=== PATIENT | female | born 1950 | race Hispanic/Latino ===

== ENCOUNTER 2017-01-15 10:54 | Outpatient (CLI) | payer MEDICARE, OTHER ==
--- NOTE | 2017-01-15 11:10 | RAD ---
PA AND LATERAL CHEST: History: Dyspnea. FINDINGS: Comparison made with exam of 09-14-16. The heart size is normal. The lungs are expanded without focal areas of consolidation, pneumothorax or pleural effusions. IMPRESSION: No radiographic evidence of acute cardiopulmonary process. POS: [facility]
== END 2017-01-15 10:55 | disposition home or self-care (01) ==
LOC: RAD 10:54
PROVIDERS: ATTEND Internal Medicine Pulmonary Disease
DX: R06.00 Dyspnea, unspecified (principal)
CPT/HCPCS: 71020

== ENCOUNTER 2017-04-16 07:35 | Outpatient (CLI) | payer MEDICARE, OTHER ==
--- NOTE | 2017-04-16 09:38 | ULT ---
ULTRASOUND ABDOMEN LIMITED: (RIGHT UPPER QUADRANT) DATE: 04-16-17 HISTORY: 66-year-old female with elevated LFTs. FINDINGS: Gallbladder: Surgically absent. Common duct: Dilated to 8 mm, probably due to reservoir effect secondary to cholecystectomy. Liver: Diffusely increased, heterogeneous echogenicity, consistent with fatty liver. Pancreas: Mostly obscured by shadowing from bowel gas. Right kidney: No hydronephrosis. IMPRESSION: 1. Hepatic steatosis. 2. Status post cholecystectomy. AL Hernandez POS: [facility]
== END 2017-04-16 07:36 | disposition home or self-care (01) ==
LOC: ULT 07:35
PROVIDERS: ATTEND Internal Medicine Geriatric Medicine
DX: R79.89 Other specified abnormal findings of blood chemistry (principal); R94.5 Abnormal results of liver function studies; K76.0 Fatty (change of) liver, not elsewhere classified; Z90.49 Acquired absence of other specified parts of digestive tract
CPT/HCPCS: 76705

== ENCOUNTER 2017-05-03 14:37 | Outpatient (CLI) | payer MEDICARE, OTHER | END 2017-05-03 14:38 | disposition home or self-care (01) | LOC: BICRAD 14:37 | PROVIDERS: ATTEND Internal Medicine Geriatric Medicine | DX: R05 Cough (principal); R11.10 Vomiting, unspecified; R06.00 Dyspnea, unspecified; I70.0 Atherosclerosis of aorta | CPT/HCPCS: 71046 ==

== ENCOUNTER 2017-06-17 07:52 | Outpatient (CLI) | payer MEDICARE, OTHER | END 2017-06-17 07:53 | disposition home or self-care (01) | LOC: BICMAMMO 07:52 | PROVIDERS: ATTEND Internal Medicine Geriatric Medicine | DX: Z12.31 Encounter for screening mammogram for malignant neoplasm of breast (principal); Z80.3 Family history of malignant neoplasm of breast | CPT/HCPCS: 77063; 77067 ==

== ENCOUNTER 2017-11-15 11:46 | Observation (INO) | payer MEDICARE, OTHER ==
[2017-11-15] MEDS ORDERED: hydrALAZINE 20 MG/ML VIAL ONE (12:10)
[2017-11-15 12:23] LABS: #Eosinphils 0.1 thou/uL (0.0-0.7); #Lymphocytes 2.4 thou/uL (1.20-3.40); #Monocytes 0.5 thou/uL (0.11-0.59); #Neutrophils 3.2 thou/uL (1.40-6.50); %Basophils 0.4 % (0.0-1.0); %Eosinophils 2.1 % (0.0-10.0); %Lymphocytes 38.1 % (21.0-51.0); %Monocytes 7.6 % (0.0-10.0); %Neutrophils 51.7 % (42.0-75.0); Hemoglobin 14.5 g/dL (12.0-16.0); Mean Corpuscular HGB CONC 34.7 g/dL (32.0-36.0); Mean Corpuscular Hemoglobin 29.8 pg (27.0-31.0); Mean Platelet Volume 8.6 fL (7.4-10.4); Platelet Count 174 thou/uL (130-400); RBC Distribution Width 13.7 % (11.5-14.5); Red Blood Cell (RBC) Count 4.86 mill/uL (4.20-5.40); White Blood Cell (WBC) Count 6.2 thou/uL (4.8-10.8)
[2017-11-15 12:48] LABS: ALT (SGPT) 61 U/L (8-55); AST (SGOT) 58 U/L (5-34); Albumin 3.9 g/dL (3.4-4.8); Alkaline Phosphatase 134 U/L (40-150); Anion Gap 14 mmol/L (10-20); BUN (Urea Nitrogen) 16 mg/dL (9.8-20.1); Bilirubin, Total 0.5 mg/dL (0.2-1.2); CK (CPK) 79 U/L (29-168); Calc. Creatinine Clearance 0 mL/min (70-130); Carbon Dioxide 22 mmol/L (23-31); Chloride 109 mmol/L (98-107); Estimated GFR-MDRD 74; Globulin 3.2 g/dL (2.4-3.5); Glucose 106 mg/dL (80-115); Potassium 3.7 mmol/L (3.5-5.1); Protein, Total 7.1 g/dL (6.0-8.3); Sodium 141 mmol/L (136-145)
[2017-11-15 12:52] LABS: CKMB 0.9 ng/mL (0-6.6); Troponin I Less than 0.010 ng/mL (< 0.028)
--- NOTE | 2017-11-15 13:00 | RAD ---
CHEST ONE VIEW: HISTORY: Chest pain. COMPARISON: Radiograph from 09/14/2016. FINDINGS: The left atrium is enlarged. Heart size is enlarged. Chronic interstitial markings in the lung base s. No pneumothorax or large effusion. No acute osseous abnormality. IMPRESSION: No acute intrathoracic abnormality. No significant change. POS: [facility]
[2017-11-15] MEDS ORDERED: ISOVUE-370 76%-LOCM 1 ML ONE (13:32)
--- NOTE | 2017-11-15 13:32 | CT ---
CT ANGIOGRAM CHEST WITH CONTRAST: HISTORY: Chest pain radiating to the back. History of aortic aneurysm. COMPARISON: CT angiogram from 2017. FINDINGS: CT angiogram of the chest and abdomen performed after the intravenous administration of contrast. Th ree-D rendering was provided. Infrarenal abdominal aortic aneurysm is present without focal dissection. The aneurysm measures up t o 2 cm, increased from 1.8 cm from 2017. The intimal flap opening now measures approximately 6 mm, p reviously 3 mm. Extensive atherosclerotic plaque. The craniocaudad length of the aneurysm and dissection combined measures approximately 2 cm. The pulmonary arteries are without proximal segmental pulmonary arterial filling defect. Mild cardio megaly. No pericardial effusion. There is a mass in the right lower lobe with swirling of the vessels and parenchyma around it, which has not significantly changed, likely a focal area of round atelectasis. No pneumothorax. No signif icant effusion. There is no acute osseous abnormality. Prior cholecystectomy. [place] effect of the common bile d uct. IMPRESSION: 1. Mild size increase of the infrarenal abdominal aorta dissection. 2. Round atelectasis left lower lobe. POS: [facility]
[2017-11-15] MEDS ORDERED: Nitroglycerin 2% Ointment 1 INCH/1 GM Packet ONE (14:00)
[2017-11-15] MEDS ORDERED: Pepto Bismol Chew TAB PO PRN (14:23)
[2017-11-15] MEDS ORDERED: Acetaminophen 325 MG TAB PO PRN (14:23)
[2017-11-15] MEDS ORDERED: Bisacodyl 5 MG TAB PO PRN (14:23)
[2017-11-15] MEDS ORDERED: Ondansetron ODT 4 MG TAB PO PRN (14:23)
[2017-11-15] MEDS ORDERED: Senokot 8.6 MG TAB PO PRN (14:23)
[2017-11-15 16:22] VITALS: BMI 36.7
[2017-11-15 16:24] LABS: Troponin I Less than 0.010 ng/mL (< 0.028)
[2017-11-15 17:55] LABS: Troponin I 0.015 ng/mL (< 0.028)
[2017-11-15] MEDS: hydrALAZINE 20 MG/ML VIAL IM PRN (19:35)
--- NOTE | 2017-11-15 19:35 | HP ---
CHIEF COMPLAINT: Chest pain. HISTORIAN: The patient's daughter, seamus. HISTORY OF PRESENT ILLNESS: This is a 67-year-old female with past medical history of AAA without ru pture, CABG in 2005, coronary artery disease, right coronary stent presented with chest pain, which s tarted about 3 days ago. Per the patient, the pain started on Saturday prior to the day of admission. When the pain presented, she stated that the pain was around the epigastric region and radiated to her mid back. Pain was very intense; pressure-like; on a pain scale, it was about 8 or 9/10 in sever ity; and the pain lasted throughout the night. Eventually, pain resolved spontaneously around 3:00 a .m. The patient stated that she tried to drink some water to help with the pain, but nothing seemed to help or alleviate her pain. Couple of days later, the patient experienced the same epigastric ilda n and it resolved spontaneously. The patient states that exertion does not bring on this epigastric pain, neither does she know what brings it on, but states that sometimes the pain comes on spontaneou sly without any provocation factors. Per patient, the last episode was very intense, therefore, the patient went to the primary care physician's office and the patient was told to come to the emergency room. In the emergency room, the patient states that her pain is located at the epigastric region a nd radiates to the back. The pain is reproducible. The patient stated that she has never had such a pain similar to this before. Of note, the patient states that she sees his human factors specialist and his PCP regularly and is very compliant with her medications except for today that she did not take her bloo d pressure medication. The patient denies any headaches, shortness of breath, cough, palpitations, d izziness, lower quadrant abdominal pain, urinary incontinence, bowel incontinence, constipation, diar grzegorz, and lower extremity edema. REVIEW OF SYSTEMS: The patient admits to reproducible chest pain that radiates to her back, but alysha es all others for her review of system. Vitals in the ED, the patient's blood pressure was 223/79, pulse of 67, respiratory rate of 19, tempe rature of 97.5, O2 sat of 99 on room air. PAST MEDICAL HISTORY: Significant for coronary artery disease, hypertension, stroke in 2014, AAA, ri ght carotid artery stent placement, pulmonary embolism. PAST SURGICAL HISTORY: Cholecystectomy, right carotid stent placement, right-sided tumor in the abdo men, coronary artery bypass and graft, hysterectomy, breast surgery. FAMILY HISTORY: Father , diagnosed with heart disease and stroke. Mother , diagnose d with cancer. Sibling alive brother, brain tumor in frontal lobe and mass in right posterior craniu m; diagnosed with diabetes, heart disease. Paternal grandfather, , diagnosed with heart dise ase. Paternal grandmother , diagnosed with heart disease and stroke. Maternal grandfather d eceased, family history unknown. The patient states that her mother had ovarian cancer. Brothers wi th diabetes and heart diseases. She has 1 sister from heart attack. SOCIAL HISTORY: The patient denies any smoking history. The patient denies any illicit drug use. T he patient lives alone with her daughter. 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 The patient drinks caffeine. ALLERGIES: No known drug allergies. CURRENT MEDICATIONS: The patient takes aspirin 81 mg, isosorbide mononitrate ER 120 mg, vitamin D 50 ,000 units weekly, rosuvastatin 20 mg, levothyroxine 75 mcg, nifedipine 90 mg, losartan 50 mg, clopid ogrel 75 mg, Nitrostat 0.4 mg sublingual every 5 minutes as needed. PHYSICAL EXAMINATION: VITAL SIGNS: Blood pressure 223/79, pulse 67, respiratory rate of 19, temperature 95.5. GENERAL: The patient is lying in bed comfortably, able to speak in full sentences. Does not appear to be in any distress. HEENT: Normocephalic, atraumatic. Pupils are equally round and reactive to light. Extraocular move ments are intact. No scleral icterus. NECK: Supple. No JVDs. Mucous membranes are moist. RESPIRATORY: Clear to auscultation bilaterally. No wheezing, no rales, no rhonchi. CARDIOVASCULAR: Positive S1, S2. Regular rate and rhythm. No murmurs, no gallops, no rubs apprecia martha. ABDOMEN: Right epigastric abdominal tenderness. Positive bowel sounds. No abdominal distention. N o masses. No pulsatile masses. No peritoneal signs. No rigidity. No guarding. BACK: The patient has thoracic musculoskeletal reproducible back tenderness. EXTREMITIES: 5/5 upper extremity strength, 5/5 lower extremity strength. NEUROLOGIC: Within normal limits. Cranial nerves II-XII grossly intact. SKIN: Warm, dry, and intact. PSYCHIATRIC: Normal affect. LABORATORY AND X-RAY FINDINGS: EKG: Normal sinus rhythm with a rate of 64. Chest CT showed 3 mm infrarenal abdominal aneurysm with dissection that increased in size from 3 mm t o 6 mm. CBC: WBC 6.2, hemoglobin 14.5, hematocrit 41.8, platelet of 174. Electrolytes: Sodium 141 , potassium 3.7, chloride 109, carbon dioxide of 22, AST 58, ALT 61. Troponin is less than 0.010, CK -MB 0.9, creatinine kinase is 79. ASSESSMENT AND PLAN: 1. This is a 67-year-old female with significant past medical history of CABG in 2005, being admitte d for atypical chest pain, likely due to unstable angina versus reflux disease. We will start the pa andrew on Protonix. We will give the patient his home dose of isosorbide dinitrate. We will give the patient losartan, aspirin, Plavix. We have consulted Cardiology. We will further work the patient up by doing a nuclear stress test. If nuclear stress test is negative, the patient will likely be di scharged home. 2. History of gastroesophageal reflux disease. We will do Protonix. 3. Coronary artery disease. We will continue the patient on home medications. 4. Hypertension. Currently, the patient did not take her home medications, so blood pressure is marjorie vated. We will do hydralazine p.r.n. We will start the patient on her home blood pressure medicatio ns. 4. Abdominal aortic aneurysm, currently stable. Nothing to be done at this time. We will monitor t he patient. 5. History of left carotid artery stenosis, 60% stenosed. The patient states that she visits her ph ysician every 6 months to have it checked. Currently, there is nothing to be done per the patient. We will advise the patient to continue to follow up as outpatient. 6. Deep venous thrombosis prophylaxis. We will do SCDs, Lovenox.
[2017-11-15] MEDS ORDERED: Valsartan 80 MG TAB PO SCH (21:00)
[2017-11-15] MEDS: Fluticasone Propionate Nasal Spray 16 gm Bottle NASAL PRN (21:14)
[2017-11-16] MEDS: Levothyroxine Sodium 75 MCG TAB PO SCH (05:54)
[2017-11-16] MEDS: hydrALAZINE 20 MG/ML VIAL IM PRN (06:32)
[2017-11-16] MEDS ORDERED: hydrALAZINE 20 MG/ML VIAL SLOW IVP PRN (07:30)
[2017-11-16] MEDS: Clopidogrel Bisulfate 75 MG TAB PO SCH (08:00)
[2017-11-16] MEDS: NIFEdipine XL 90 MG TAB PO SCH (08:01)
[2017-11-16] MEDS: Enoxaparin Sodium 40 MG/0.4 ML SYRINGE SC SCH (08:01)
[2017-11-16] MEDS: Losartan 25 MG TAB PO SCH (08:01)
[2017-11-16] MEDS: Rosuvastatin 20 MG TAB PO SCH (08:01)
[2017-11-16] MEDS: Fluticasone Propionate Nasal Spray 16 gm Bottle NASAL PRN (08:02)
--- NOTE | 2017-11-16 16:17 | CON ---
DATE OF CONSULTATION: 11/16/2017 HISTORY: Soila Beth is a 67-year-old Latin-[place] female with previous history of CABG, followed by Dr. Hansen for many years. In 2005, she underwent CABG x5. In 06/2008, while living in [place], she underwent repeat catheterization due to the finding of anterior ischemia on nuclear stress test. There was normal wall motion with ejection fraction of 60%-65% with moderate mitral regurgitation. There was 70% distal left main, total occlusion of the LAD proximally. The circumflex had a 40% ostial stenosis with severe proximal disease in both the obtuse marginals. The right coronary artery was a small vessel with diffuse disease in its midsection. Bypass revealed patent graft to the right coronary artery, obtuse marginal 1, obtuse marginal 2. There is a patent graft to the second diagonal. The SUAREZ to the LAD was small and anastomosed to the mid LAD after the second diagonal. There was strong competitive flow from the vein graft to the second diagonal. She also underwent bilateral renal angiography, which revealed only minimal plaquing. In May 2017, she underwent a cardiac PET scan in the office. This revealed no evidence of ischemia. There was normal wall motion with ejection fraction of 65%. She was last seen in the office on 09/26/2017, and in general, had no specific complaints. She now is admitted with a several-day history of epigastric discomfort. She describes this as a pressure, associated with some shortness of breath. The first night, this discomfort lasted 5 or 6 hours and kept her up until 3 in the morning. She ultimately took some Gas-X and in 5-10 minutes this seemed to relieve the discomfort. Since then, she has had several recurrences, relieved with Gas-X. Her last episode was more severe and she went to see her primary physician and then was referred to the emergency room. She denies any chest discomfort. PAST MEDICAL HISTORY: Coronary artery disease, hypertension, hypercholesterolemia, right carotid artery stent placement, history of pulmonary embolism. Her most recent abdominal CAT scan revealed no evidence of abdominal aortic aneurysm. This was performed in 08/2016. Three months prior to that, an abdominal CT revealed atherosclerotic changes in the abdominal aorta , but no evidence of aneurysm. Hypothyroidism. MEDICATIONS: Aspirin 81 daily, Plavix 75 mg daily, vitamin D2, isosorbide mononitrate 120 q.a.m., levothyroxine 75 mcg, losartan 50 daily, nifedipine 90 mg daily, rosuvastatin 20 at bedtime. ALLERGIES: None. SOCIAL HISTORY: She does not smoke. She does not drink. OPERATIONS: CABG, cholecystectomy, right carotid artery stent, hysterectomy, breast surgery. FAMILY HISTORY: Father had heart disease. REVIEW OF SYSTEMS: Twelve-point review of systems, otherwise, unremarkable. PHYSICAL EXAMINATION: VITAL SIGNS: Blood pressure 161/70, pulse of 85. HEENT: PERRL. NECK: Supple. CHEST: Clear. CARDIAC EXAMINATION: S1 and S2 normal, without any S3, S4, or murmurs. Carotid upstrokes normal, without bruits. ABDOMEN: Obese. Normal bowel sounds. She does not have any epigastric tenderness. EXTREMITIES: Revealed no clubbing, cyanosis, or edema. NEUROLOGIC: Grossly intact. SKIN: Warm and dry. LABORATORY DATA: EKG reveals normal sinus rhythm with poor R-wave progression in V1 to V3. CBC is normal. Sodium 141, potassium 3.7, chloride 109, carbon dioxide 22, BUN 16, creatinine 0.78. Cardiac enzymes are negative x3. In 2017, she had a lipid panel with an LDL of 52. IMPRESSION: 1. Epigastric pain, probably gastrointestinal in nature. She had 5-6 hours of pain initially and her cardiac enzymes were totally normal. 2. Status post coronary artery bypass grafting x5. In 2008, she underwent repeat catheterization and her grafts were patent at that time. She also had a PET scan in the office in 05/2017, which revealed no evidence of ischemia. 3. Hypertension. 4. Hyperlipidemia. 5. History of right carotid stent. 6. Obesity. PLAN: Ms. Beth's epigastric discomfort does not appear to be cardiac in nature with prolonged episode and negative cardiac enzymes. Also, the discomfort seemed to improve with Gas-X. She has been placed on Protonix 40 mg daily. She will undergo adenosine Cardiolite testing for further evaluation as per the primary service. [facility]
--- NOTE | 2017-11-16 16:38 | PDOC.PN ---
- Subjective Encounter Start Date: 11/16/17 Encounter Start Time: 16:36 seen and examined. States she is having chest compression type pain this morning. BP was elevated in the AM - Objective MAR Reviewed: Yes Vital Signs & Weight: Vital Signs (12 hours) Temp Pulse Resp BP BP BP Pulse Ox 11/16/17 15:05 98.4 F 89 18 139/63 97 11/16/17 12:27 99.3 F 77 18 129/60 97 11/16/17 09:22 85 161/70 H 11/16/17 08:01 79 170/74 H 11/16/17 08:00 97.5 F L 79 16 11/16/17 07:55 98.5 F 80 18 170/74 H 97 11/16/17 06:32 79 203/84 H 11/16/17 05:54 97.9 F 82 16 203/84 H 98 Weight Weight 182 lb 12.8 oz I&O: 11/15/17 11/16/17 11/17/17 06:59 06:59 06:59 Intake Total 540 Output Total 400 Balance 140 Result Diagrams: 11/15/17 12:11 11/15/17 12:11 Phys Exam - Physical Examination Constitutional: NAD HEENT: PERRLA, moist MMs Neck: no JVD, supple, full ROM Respiratory: no wheezing, no rales, no rhonchi Cardiovascular: RRR, no significant murmur pain with palpation Gastrointestinal: soft, non-tender, no distention, positive bowel sounds Musculoskeletal: no edema, pulses present Neurological: non-focal, normal sensation, moves all 4 limbs Psychiatric: normal affect, A&O x 3 Skin: no rash, normal turgor Dx/Plan (1) atypical chest likely unstable angina Status: Acute Comment: stress test and echo ordered. Cardio saw the patient. Cardiac managment in progress. (2) Hypertensive urgency Code(s): I16.0 - HYPERTENSIVE URGENCY Status: Acute Comment: hydralazing prn and patient home meds. (3) AAA (abdominal aortic aneurysm) Code(s): I71.4 - ABDOMINAL AORTIC ANEURYSM, WITHOUT RUPTURE Status: Chronic Comment: stable (4) CAD (coronary artery disease) Code(s): I25.10 - ATHSCL HEART DISEASE OF [place] CORONARY ARTERY W/O ANG PCTRS Status: Chronic Comment: continue current meds. (5) Dyslipidemia Code(s): E78.5 - HYPERLIPIDEMIA, UNSPECIFIED Status: Chronic (6) GERD (gastroesophageal reflux disease) Code(s): K21.9 - GASTRO-ESOPHAGEAL REFLUX DISEASE WITHOUT ESOPHAGITIS Status: Chronic Comment: continue current management. (7) Obesity (BMI 30-39.9) Code(s): E66.9 - OBESITY, UNSPECIFIED Status: Chronic - Plan * . Review of Systems - Review of Systems Constitutional: negative: fever, chills, sweats, weakness, malaise, other Eyes: negative: Pain, Vision Change, Conjunctivae Inflammation, Eyelid Inflammation, Redness, Other ENT: negative: Ear Pain, Ear Discharge, Nose Pain, Nose Discharge, Nose Congestion, Mouth Pain, Mouth Swelling, Throat Pain, Throat Swelling, Other Respiratory: negative: Cough, Dry, Shortness of Breath, Hemoptysis, SOB with Excertion, Pleuritic Pain, Sputum, Wheezing Cardiovascular: chest pain. negative: palpitations, orthopnea, paroxysmal nocturnal dyspnea, edema, light headedness, other Gastrointestinal: negative: Nausea, Vomiting, Abdominal Pain, Diarrhea, Constipation, Melena, Hematochezia, Other Genitourinary: negative: Dysuria, Frequency, Incontinence, Hematuria, Retention , Other Musculoskeletal: negative: Neck Pain, Shoulder Pain, Arm Pain, Back Pain, Hand Pain, Leg Pain, Foot Pain, Other Skin: negative: Rash, Lesions, Hola, Bruising, Other Neurological: negative: Weakness, Numbness, Incoordination, Change in Speech, Confusion, Seizures, Other - Medications/Allergies Allergies/Adverse Reactions: Allergies Allergy/AdvReac Type Severity Reaction Status Date / Time No Known Allergies Allergy Verified 11/15/17 15:38 Medications: Current Medications Acetaminophen (Tylenol) 650 mg PO Q4H PRN PRN Reason: Headache/Fever or Pain Aspirin (Aspirin Chewable) 81 mg PO DAILY [facility] Last Admin: 11/16/17 08:00 Dose: 81 mg Bisacodyl (Dulcolax) 10 mg PO DAILYPRN PRN PRN Reason: Constipation Bismuth Subsalicylate (Pepto Bismol) 2 tab PO Q1H PRN PRN Reason: Diarrhea/Loose Stools Clopidogrel Bisulfate (Plavix) 75 mg PO DAILY [facility] Last Admin: 11/16/17 08:00 Dose: 75 mg Enoxaparin Sodium (Lovenox) 40 mg SC 0900 [facility] Last Admin: 11/16/17 08:01 Dose: 40 mg Fluticasone Propionate (Flonase Nasal [place]) 0 gm NASAL DAILYPRN PRN PRN Reason: Allergies Last Admin: 11/16/17 08:02 Dose: 1 spr Hydralazine HCl (Apresoline) 10 mg SLOW IVP Q4H PRN PRN Reason: Blood Pressure Isosorbide Mononitrate (Imdur) 60 mg PO BID [facility] Last Admin: 11/16/17 08:01 Dose: 60 mg Levothyroxine Sodium (Synthroid) 75 mcg PO 0600 [facility] Last Admin: 11/16/17 05:54 Dose: 75 mcg Losartan Potassium (Cozaar) 50 mg PO DAILY [facility] Last Admin: 11/16/17 08:01 Dose: 50 mg Morphine Sulfate (Morphine) 2 mg SLOW IVP Q4H PRN PRN Reason: Moderate to Severe Pain (6-10) Nifedipine (Procardia Xl) 90 mg PO DAILY [facility] Last Admin: 11/16/17 08:01 Dose: 90 mg Ondansetron HCl (Zofran Odt) 4 mg PO Q6H PRN PRN Reason: Nausea/Vomiting Pantoprazole Sodium (Protonix) 40 mg PO DAILY [facility] Last Admin: 11/16/17 08:01 Dose: 40 mg Rosuvastatin Calcium (Crestor) 20 mg PO DAILY [facility] Last Admin: 11/16/17 08:01 Dose: 20 mg Senna (Senokot) 2 tab PO HSPRN PRN PRN Reason: Constipation Sodium Chloride (Flush - Normal Saline) 10 ml IVF Q12HR [facility] Last Admin: 11/16/17 08:01 Dose: 10 ml Sodium Chloride (Flush - Normal Saline) 10 ml IVF PRN PRN PRN Reason: Saline Flush
[2017-11-17] MEDS: Levothyroxine Sodium 75 MCG TAB PO SCH (05:44)
[2017-11-17 08:06] VITALS: BP 155/69; TEMP 98
[2017-11-17] MEDS: Clopidogrel Bisulfate 75 MG TAB PO SCH ×2 (10:15→12:46)
[2017-11-17] MEDS: Enoxaparin Sodium 40 MG/0.4 ML SYRINGE SC SCH (10:15)
[2017-11-17] MEDS: NIFEdipine XL 90 MG TAB PO SCH ×2 (10:15→12:46)
[2017-11-17] MEDS: Losartan 25 MG TAB PO SCH ×2 (10:15→12:46)
[2017-11-17] MEDS: Rosuvastatin 20 MG TAB PO SCH ×2 (10:16→12:45)
[2017-11-17] MEDS ORDERED: ADENOSINE 60 MG/20 ML VIAL ONE (10:44)
--- NOTE | 2017-11-17 13:12 | NM ---
CARDIAC SPECT: HISTORY: A 67-year-old female with chest pain, hypertension, coronary artery disease, CABG, stent. TECHNIQUE: A myocardial perfusion scan was performed using the single-isotope 1-day protocol with Technetium 99m sestamibi. Ten mCi were injected intravenously for the rest exam followed by 30 mCi for the stress study. Pharmacologic stress with adenosine is monitored and interpreted by Dr. Humphries. FINDINGS: Homogeneous tracer distribution is seen in the myocardial segments on stress and rest images without fixed or reversible defects. GATED SPECT LVEF: 73%. WALL MOTION EXAM: Normal. IMPRESSION: Normal myocardial perfusion scan. POS: [facility]
--- NOTE | 2017-11-17 14:42 | DIS ---
DATE OF DISCHARGE: 11/17/2017 DISCHARGE DISPOSITION: Home. The patient will be discharged home once cleared by Cardiology. DISCHARGE MEDICATIONS: 1. Dexilant 60 mg daily. 2. All other home medications were left, unchanged including aspirin and Plavix. BRIEF HOSPITAL COURSE: Patient is a 67-year-old female with coronary artery disease who presented to the hospital with chest discomfort. Please refer to the history and physical for further details. The patient was admitted to the hospital with a diagnosis of chest discomfort, rule out acute coronar y syndrome. Serial troponins remain negative. The patient was evaluated by Cardiology, Dr. Humphries as well. She underwent a Cardiolite stress test that was negative for reversible ischemia. An echo cardiogram showed ejection fraction 55%-60% with mild mitral regurgitation and mild tricuspid regurgi tation. The left atrium was mildly dilated. A CT dissection protocol in the emergency room showed m ild increase in the infrarenal abdominal aortic aneurysm without focal dissection. Patient is chest pain free. Her symptoms have improved after addition of PPIs. FINAL DIAGNOSES: 1. Chest discomfort, acute coronary syndrome ruled out. 2. Negative Cardiolite stress test. 3. Obesity with a BMI 37.7. 4. Coronary artery disease, status post coronary artery bypass grafting. 5. Mild increase in size of the infrarenal abdominal aortic aneurysm. 6. History of carotid artery stenosis, primary care physician is advised to follow. 7. History of cerebrovascular accident. 8. History of pulmonary embolism. Plan of care was discussed with the patient in detail and she stated understanding.
--- NOTE | 2017-11-20 09:12 | STRESS ---
Acquisition Time: 2017-11-17 10:22:18 Total Exercise Time: 00:04:00 Test Indications: CHEST PAIN Medications: Protocol: ADENOSINE Max HR: 090 BPM 58% of Pred: 154 BPM Max BP: 160/080 mmHG Max Work Load: 1.0 METS RESTING EKG: SINUS BRADYARRTHYMIA AT 54 BPM AND NST SYMPTOMS: CHEST PAIN AND NAUSEA APPROPRIATE RESPONSE FOR ADENOSINE ECTOPY: RARE PVCS EKG STRESS: NO SIGNIFICANT CHANGES INTERPRETATION: AWAIT NUCLEAR IMAGES FOR DEFINITIVE DIAGNOSIS Confirmed by IMELDA GALEAS ([id number]), slot editor JORDAN DOMINGUEZ ([id number]) on 11/20/2017 9:11:50 AM Referred By: Confirmed By:IMELDA GALEAS
--- NOTE | 2017-11-20 14:52 | EKG ---
Test Reason : Blood Pressure : / mmHG Vent. Rate : 064 BPM Atrial Rate : 250 BPM P-R Int : 224 ms QRS Dur : 092 ms QT Int : 386 ms P-R-T Axes : 054 032 086 degrees QTc Int : 398 ms Normal sinus rhythm Septal infarct , age undetermined Abnormal ECG Confirmed by JUAN ANTONIO DENISE ([id number]), editor publications JINNY ATKINS ([id number]) on 11/20/2017 2:52:03 PM Referred By: Confirmed By:JUAN ANTONIO DENISE
== END 2017-11-17 14:57 | disposition home or self-care (01) ==
LOC: ERS 11:46 → 2SW 15:06
PROVIDERS: ADMIT Internal Medicine; ATTEND Internal Medicine
DX: R07.89 Other chest pain (principal); I25.10 Atherosclerotic heart disease of native coronary artery without angina pectoris; I71.4 Abdominal aortic aneurysm, without rupture; I65.22 Occlusion and stenosis of left carotid artery; I16.0 Hypertensive urgency; Z95.1 Presence of aortocoronary bypass graft; K21.9 Gastro-esophageal reflux disease without esophagitis; E78.00 Pure hypercholesterolemia, unspecified; E03.9 Hypothyroidism, unspecified; E78.5 Hyperlipidemia, unspecified; E66.9 Obesity, unspecified; Z68.37 Body mass index [BMI] 37.0-37.9, adult; Z86.73 Personal history of transient ischemic attack (TIA), and cerebral infarction without residual deficits; Z86.711 Personal history of pulmonary embolism; Z79.82 Long term (current) use of aspirin; Z79.02 Long term (current) use of antithrombotics/antiplatelets; Z79.899 Other long term (current) drug therapy; Z95.820 Peripheral vascular angioplasty status with implants and grafts; Z95.5 Presence of coronary angioplasty implant and graft
CPT/HCPCS: 71045; 71275; 78452; 80053; 82550; 82553; 84484 ×2; 85025; 93005; 93017; 93306; 96372; 96374; 96376 ×2; 99285; A9500; G0378 ×2; 36415; A4216; J0153; J0360; J1650

== ENCOUNTER 2019-10-07 12:01 | Emergency (ER) | payer MEDICARE, OTHER ==
--- NOTE | 2019-10-07 13:56 | CT ---
EXAM: CT scan cervical spineWithout contrast: HISTORY: Injury from trauma with neck pain COMPARISON: None FINDINGS: No evidence for acute fracture or facet dislocation. No significant malalignment. No prevertebral soft tissue swelling. Generalized spondylosis. Carotid arterial calcific disease with right-sided stent. IMPRESSION: No evidence for acute fracture or facet dislocation or other significant acute process.
[2019-10-07] MEDS ORDERED: Ketorolac Tromethamine 30 MG/ML VIAL ONE (14:34)
== END 2019-10-07 14:25 | disposition home or self-care (01) ==
LOC: ERS 12:01
DX: S16.1XXA Strain of muscle, fascia and tendon at neck level, initial encounter (principal); V43.62XA Car passenger injured in collision with other type car in traffic accident, initial encounter
CPT/HCPCS: 72125; J1885

== ENCOUNTER 2019-11-22 06:28 | Inpatient (IN) | payer MEDICARE, OTHER ==
[2019-11-22] MEDS ORDERED: Nitroglycerin 2% Ointment 1 INCH/1 GM Packet ONE (06:56)
[2019-11-22] MEDS ORDERED: niCARdipine 20MG In NaCl 20 MG/200 ML BAG ONE (06:56)
[2019-11-22] MEDS ORDERED: Aspirin 325 MG TAB ONE (06:56)
[2019-11-22 07:04] LABS: #Eosinphils 0.2 thou/uL (0.0-0.7); #Monocytes 0.6 thou/uL (0.11-0.59); #Neutrophils 4.5 thou/uL (1.40-6.50); %Basophils 0.6 % (0.0-1.0); %Eosinophils 2.8 % (0.0-10.0); %Lymphocytes 35.9 % (21.0-51.0); %Monocytes 7.1 % (0.0-10.0); %Neutrophils 53.7 % (42.0-75.0); Hemoglobin 14.6 g/dL (12.0-16.0); Mean Corpuscular HGB CONC 34.4 g/dL (32.0-36.0); Mean Corpuscular Hemoglobin 29.9 pg (27.0-31.0); Mean Corpuscular Volume 86.9 fL (78.0-98.0); Mean Platelet Volume 10.3 fL (7.4-10.4); Platelet Count 153 thou/uL (130-400); Red Blood Cell (RBC) Count 4.87 mill/uL (4.20-5.40); White Blood Cell (WBC) Count 8.4 thou/uL (4.8-10.8)
[2019-11-22 07:22] LABS: ALT (SGPT) 37 U/L (8-55); AST (SGOT) 35 U/L (5-34); Albumin 3.9 g/dL (3.4-4.8); Alkaline Phosphatase 99 U/L (40-110); Anion Gap 17 mmol/L (10-20); BUN (Urea Nitrogen) 15 mg/dL (9.8-20.1); Bilirubin, Total 0.7 mg/dL (0.2-1.2); Calc. Creatinine Clearance 0 mL/min (70-130); Carbon Dioxide 17 mmol/L (23-31); Chloride 111 mmol/L (98-107); Estimated GFR-MDRD 75; Globulin 3.4 g/dL (2.4-3.5); Glucose 123 mg/dL (80-115); Lipase 39 U/L (8-78); Potassium 3.1 mmol/L (3.5-5.1); Protein, Total 7.3 g/dL (6.0-8.3); Sodium 142 mmol/L (136-145)
--- NOTE | 2019-11-22 07:34 | RAD ---
Exam: Chest one view HISTORY:Chest pain Comparison: 10/17/2019 FINDINGS: Cardiac silhouette:Enlarged cardiac silhouette. There are sternotomy wires. Aorta: Atherosclerosis of the aorta Pulmonary vessels: Normal Costophrenic angles: Clear LUNGS: No masses or consolidation. Chronic changes are present. Pneumothorax: None Osseous abnormalities: None IMPRESSION: 1. Atherosclerosis 2. No acute cardiopulmonary process.
[2019-11-22] MEDS ORDERED: niCARdipine 25 MG in Sodium Chloride 0.9% 250 ML 240 ML IVPB SCH (10:00)
--- NOTE | 2019-11-22 10:50 | HP ---
HISTORY OF PRESENT ILLNESS: Ms. Beth is a 69-year-old female with a medical history of coronary artery disease, status post CABG (5-vessel bypass, 2005); hypertension; who presented for palpitations. The patient woke up this morning at around 4 a.m. and took a shower, during which, she started feeling her heart racing. The patient got out of the shower and took her medications, but her heart racing persisted and was associated with presyncope. She then to her nitroglycerin pill but symptoms did not resolve, so she came to the emergency room. Of note, the patient was admitted 3 weeks ago to [facility] and reported having a heart rate as low as 25 beats per minute. A week ago, the patient went to her drawer in jacquard loom, who told her that she had bradycardia and started her on a 24-hour heart monitor. The patient does not know outcome of the heart monitor. On encounter, the patient is lying comfortably in bed and has no complaints. Denies fatigue, chest pain or pressure, palpitations, syncope, presyncope, shortness of breath, shortness of breath on exertion, jaw pain, shoulder pain, upper back pain, abdominal pain, diarrhea, hematochezia, melena, history of bleeding, focal weakness, dysarthria, diplopia, nonadherence to medications. EMERGENCY DEPARTMENT COURSE: In the ED, the patient was found to have systolic blood pressure of 250s, she was started on Cardene drip and blood pressure was reduced to systolic of 180s. She was admitted to the ICU for further management. REVIEW OF SYSTEMS: Full review of systems was carried out and was negative with the exception of that mentioned in the HPI. PAST MEDICAL HISTORY: Coronary artery disease, status post CABG in 2005; PE 3 years ago; stroke; stroke, status post right carotid stent placement; hypertension; hypothyroidism. PAST SURGICAL HISTORY: CABG in 2006, right carotid stent, bilateral breast lumpectomies, benign tumor removal from the abdominal space, cholecystectomy, tonsillectomy, and hysterectomy. SOCIAL HISTORY: No tobacco, alcohol, or illicit drug use. FAMILY HISTORY: Mother at 62 from ovarian cancer. Father at age of 62 from myocardial infarction. Sister from myocardial infarction, and another sister has breast cancer. MEDICATIONS: Medications were reconciled in the EMR. ALLERGIES: NO KNOWN DRUG ALLERGIES. PHYSICAL EXAMINATION: VITAL SIGNS: Blood pressure 172/72, pulse 81, respiratory rate 16, oxygen saturation 95% on room air, and temperature 97.8. GENERAL: Obese, lying comfortably in bed, in no apparent distress. Awake and alert. HEENT: Normocephalic, atraumatic. No JVD. CARDIAC: Regular rate and rhythm. No murmurs, gallops, or rubs. LUNGS: Clear to auscultation bilaterally. No wheezing, rales, or rhonchi. GI: Soft, nontender, and nondistended. Normal bowel sounds. EXTREMITIES: Pretibial pitting edema, bilateral, left more than right. NEUROLOGIC: Cranial nerves 2 through 12 grossly intact. Strength 5/5 throughout upper and lower extremities. Sensation to light touch intact throughout. PSYCHIATRIC: Proper mood and affect. Alert and oriented x3. LABORATORY AND DIAGNOSTIC DATA: Labs and imaging were reviewed. Of note, EKG showed ST-depression in leads V4 to V6 and limb lead I. Initial troponin was negative. BNP was negative. ASSESSMENT AND PLAN: Ms. Beth is a 69-year-old female with medical history of coronary artery disease, status post coronary artery bypass grafting; hypertension, who presents with hypertensive emergency. Problem #1: 1. Hypertensive emergency. a. Systolic blood pressure 250 on presentation despite adherence to medications. b. Also, complained of palpitations and per ED physician of crushing chest pain, even though on encounter, the patient denied ever having chest pain. c. EKG showing lateral ST-depression (new compared to an EKG taken in October of 2019) d. The patient currently on Cardene drip with a most recent blood pressure being 172/72. Plan: 1. Continue Cardene drip for 24 hours. Goal blood pressure should be around 180 /100. 2. The patient's oral antihypertensives can be started gradually afterwards in order to achieve gradual slowing of the blood pressure. 3. Trend troponin and EKG. Echocardiography 4. Cardiology and Critical Care consulted. Problem #2: 1. Episodic bradycardia. a. The patient reports recent episodes of bradycardia as low as 25 beats per minute. b. The patient is currently in normal sinus. Plan: 1. Cardiology consulted 2. records requested Problem #3: 1. Left lower extremity pitting edema. a. Lower extremity pitting edema on the left greater than the right. b. The patient has a history of pulmonary embolism. c. Also, new onset of bradycardia might be a result of right heart strain. Plan: 1. LE Doppler. DISPOSITION/PROPHYLAXIS: 1. The patient is full code per the patient's request. 2. GI prophylaxis. The patient is taking pantoprazole 20 mg daily. 3. DVT prophylaxis, Lovenox. Job ID: [id number] MTDD
[2019-11-22 11:24] LABS: Troponin I 0.027 ng/mL (< 0.028)
[2019-11-22] MEDS ORDERED: Electrolyte Replacement Protoc 1 EACH EACH FS SCH (11:30)
[2019-11-22] MEDS ORDERED: Meclizine HCl 25 MG TAB PO PRN ×2 (11:30→19:24)
[2019-11-22] MEDS ORDERED: Electrolyte Replacement Protocol FS PRN (11:45)
--- NOTE | 2019-11-22 11:55 | CON ---
DATE OF CONSULTATION: 11/22/2019 REASON FOR CONSULTATION: Hypertensive emergency. HISTORY OF PRESENT ILLNESS: Ms. Beth is a pleasant 69-year-old white female who comes to the hospital for palpitations. She was at home, woke up, felt a heart pounding, checked her blood pressure was 205/120, took a p.r.n. clonidine, that did not do much, so she called 911. She was brought in and found to have blood pressure of 230s/120s, so she was admitted on a nicardipine drip. She denies any chest pain, tightness, or pressure, only the palpitations. She does have a history of coronary artery disease. Her blood pressure is better now in the 180s. PAST MEDICAL HISTORY: 1. Coronary artery disease, status post CABG in 2005. 2. Pulmonary embolism about 3 years ago. 3. History of CVA. 4. Right carotid stent placement. 5. Hypertension. 6. Hypothyroidism. PAST SURGICAL HISTORY: 1. CABG x5 in 2005. 2. Right carotid stent. 3. Bilateral breast lumpectomies. 4. Benign tumor removal from the abdominal space. 5. Cholecystectomy. 6. Tonsillectomy. 7. Cystectomy. SOCIAL HISTORY: No alcohol, tobacco, or drugs. FAMILY HISTORY: Mother at 62 of an ovarian cancer. Father at 62 of [place]. Sister of [place] and another sister with breast cancer. MEDICATIONS: 1. Lisinopril 5 mg daily. 2. Hydralazine 25 mg twice a day. 3. Clonidine 0.1 mg p.r.n. for hypertension. 4. Crestor 20 mg a day. 5. Plavix 75 mg a day. 6. Aspirin 81 a day. 7. Levothyroxine 75 mcg a day. 8. Imdur 120 mg a day. 9. Flonase. 10. Sublingual nitroglycerin p.r.n. 11. Meclizine. 12. Aspirin. 13. Pantoprazole 20 mg a day. ALLERGIES: NO KNOWN DRUG ALLERGIES. REVIEW OF SYSTEMS: A 12-point review of systems was done and was found to be negative other than stated in the History of Present Illness. PHYSICAL EXAMINATION: VITAL SIGNS: Temperature 97.8, pulse 66, respiratory rate 16, sat 98% on room air, and blood pressure 155/88. GENERAL: Awake, alert, and oriented x3. No distress. HEENT: Normocephalic, atraumatic. NECK: Supple. LUNGS: Clear. CARDIOVASCULAR: S1 and S2. No S3 or S4. No murmurs. ABDOMEN: Soft. Positive bowel sounds. EXTREMITIES: No edema. SKIN: Warm and dry. LABORATORY DATA: Laboratory work was reviewed. Sodium 142, potassium was 3.1, chloride 111, carbon dioxide of 17, anion gap of 17, BUN of 15, creatinine 0.77, GFR of 75. Troponin was negative x1. BNP was 94. Chest x-ray was reviewed. Most recent echocardiogram on 10/18/2019 showed an EF of 55% to 60%. ASSESSMENT: 1. Hypertensive emergency. 2. Positive bradycardia. 3. Coronary artery disease, but no acute coronary syndrome. PLAN: 1. We would restart her home medications and stop the nicardipine drip. 2. Certainly, there is a plenty of space to go up on her medications for blood pressure. She states that she runs in the 140s to 160s at home. 3. She tells me that she recently wore monitor from Dr. Stacy to see if she was a candidate for pacemaker, asked during her last admission about a month ago. She had bradycardia overnight, which is not an indication for pacemaker because she was sleeping at this time. Thank you for letting us to participate in the care of your patient. We will follow. Job ID: [id number]
--- NOTE | 2019-11-22 12:00 | CON ---
DATE OF CONSULTATION: HISTORY OF PRESENT ILLNESS: Soila Beth is a 69-year-old female, who comes in here after she developed some heaviness in the chest symptoms with left and right upper extremity radiation. No nausea, no vomiting. Her blood pressure in the ER was markedly elevated. She was at the [facility], recently underwent a Holter monitor. Her systolic blood pressure was 240 on arrival. It is 150 now in the ICU. She is very comfortable. Nonsmoker. No history of pneumonia, TB, or asthma. PAST MEDICAL HISTORY: Hypothyroidism, hypertension, hyperlipidemia, coronary artery disease, unknown bradycardia, Holter monitor results pending. PREVIOUS SURGERIES: Lumpectomy, abdominal surgery, previous bypass surgery, history of apparently previous pulmonary emboli, history of cholecystectomy, hysterectomy, breast surgery. SOCIAL HISTORY: No alcohol or tobacco abuse. HOME MEDICINES: 1. Hydralazine 75. 2. Catapres 0.1. 3. Crestor 20. 4. Protonix 20. 5. Meclizine 25. 6. Zestril 5. 7. Synthroid 75. 8. Ismo 120. 9. Plavix 75. 10. Aspirin 81. REVIEW OF SYSTEMS: Otherwise, 10-point negative. PHYSICAL EXAMINATION: GENERAL: The patient is awake, alert, responsive, in the ICU. VITAL SIGNS: Her blood pressure is now is 150/80, pulse 80, respiratory rate 18, sats 96%. CHEST: No wheezing, no crackles. CARDIAC: Normal S1, S2. ABDOMEN: No masses. LABORATORY DATA: Unremarkable. Creatinine is normal. Potassium 3.1. AST is 35. Chest x-ray was normal. IMPRESSION: 1. Status post chest pain, uncontrolled hypertension, on Cardene. 2. Hypertension. 3. Recent bradycardia, coronary artery disease, peripheral vascular disease. PLAN: Pulmonary is going to follow in the ICU. I will continue present medication. Restart home medication. Consultation note, 70 minutes, 50% direct patient care. Job ID: [id number]
[2019-11-22 14:15] LABS: Troponin I 0.035 ng/mL (< 0.028)
[2019-11-22] MEDS ORDERED: Potassium Chloride 20 MEQ TAB PO SCH (14:15)
[2019-11-22] MEDS: hydrALAZINE 20 MG/ML VIAL SLOW IVP PRN (23:55)
[2019-11-23] MEDS: Morphine 4 MG/ML VIAL SLOW IVP PRN ×3 (00:31→23:31)
[2019-11-23] MEDS: Sodium Chloride 0.9% 1,000 ML IV SCH ×4 (01:39→12:22)
[2019-11-23] MEDS ORDERED: Nitroglycerin 2% Ointment 1 INCH/1 GM Packet TOP SCH (02:15)
[2019-11-23 05:04] LABS: Anion Gap 14 mmol/L (10-20); BUN (Urea Nitrogen) 18 mg/dL (9.8-20.1); Calc. Creatinine Clearance 0 mL/min (70-130); Calcium 9.1 mg/dL (7.8-10.44); Carbon Dioxide 22 mmol/L (23-31); Chloride 111 mmol/L (98-107); Estimated GFR-MDRD 72; Glucose 114 mg/dL (80-115); Potassium 3.5 mmol/L (3.5-5.1); Sodium 143 mmol/L (136-145)
[2019-11-23] MEDS ORDERED: Potassium Chloride 20 MEQ TAB PO SCH (05:15)
[2019-11-23] MEDS: Levothyroxine Sodium 25 MCG TAB PO SCH (05:33)
[2019-11-23] MEDS: Levothyroxine Sodium 112 MCG TAB PO SCH (05:33)
[2019-11-23] MEDS: hydrALAZINE 20 MG/ML VIAL SLOW IVP PRN ×3 (05:35→22:48)
[2019-11-23] MEDS: Lisinopril 20 MG TAB PO SCH (07:10)
[2019-11-23] MEDS: Clopidogrel Bisulfate 75 MG TAB PO SCH (07:51)
[2019-11-23] MEDS: Aspirin 81 mg Enteric Coated Tablet PO SCH (07:51)
[2019-11-23] MEDS ORDERED: Chlorthalidone 25 MG TAB PO SCH ×2 (08:15→09:00)
--- NOTE | 2019-11-23 08:24 | PDOC.HOSPP ---
- Subjective Encounter Date: 11/23/19 Encounter Time: 08:00 Subjective: Overnight, complained of chest pain. EKG showing JABARI AVR > V1, reciprocal ST depressions, active retrosternal chest pressure. Given morphine, cardiology notified. - Objective Vital Signs & Weight: Vital Signs (12 hours) Temp Pulse BP Pulse Ox 11/23/19 07:10 188/66 H 11/23/19 07:09 60 188/66 H 11/23/19 07:00 98.6 F 11/23/19 05:35 60 188/66 H 11/23/19 04:00 98.7 F 11/23/19 00:51 98 11/23/19 00:00 98.2 F 11/22/19 23:55 81 193/70 H Weight Weight 2.667 oz Most Recent Monitor Data Heart Rate from ECG 99 NIBP 239/90 NIBP BP-Mean 139 Respiration from ECG 29 SpO2 90 I&O: 11/22/19 11/23/19 11/24/19 06:59 06:59 06:59 Intake Total 1065 Output Total 1050 150 Balance 15 -150 Result Diagrams: 11/22/19 06:52 11/23/19 03:54 Hospitalist ROS - Review of Systems Constitutional: reports: sweats. denies: chills Cardiovascular: reports: chest pain. denies: palpitations, orthopnea, paroxysmal noc. dyspnea Gastrointestinal: reports: nausea. denies: vomiting, abdominal pain Musculoskeletal: denies: shoulder pain, arm pain, back pain - Medication Medications: Active Medications Generic Name Dose Route Start Last Admin Trade Name Freq PRN Reason Stop Dose Admin Aspirin 81 mg 11/23/19 09:00 11/23/19 07:51 Ecotrin PO 81 mg DAILY BLAYNE Administration Clopidogrel Bisulfate 75 mg 11/23/19 09:00 11/23/19 07:51 Plavix PO 75 mg DAILY BLAYNE Administration Enoxaparin Sodium 40 mg 11/23/19 09:00 11/23/19 07:51 Lovenox SC 40 mg 0900 BLAYNE Administration Hydralazine HCl 10 mg 11/22/19 19:21 11/23/19 07:09 Apresoline SLOW IVP 10 mg Q4H PRN Administration BP > 180/110 Sodium Chloride 1,000 mls @ 100 mls/hr 11/22/19 18:15 11/23/19 05:36 Normal Saline 0.9% IV 1,000 mls .Q10H BLAYNE Administration Isosorbide Mononitrate 120 mg 11/23/19 09:00 11/23/19 07:51 Imdur PO 120 mg DAILY BLAYNE Administration Levothyroxine Sodium 112 mcg 11/23/19 06:00 11/23/19 05:33 Synthroid PO 112 mcg 0600 BLAYNE Administration Levothyroxine Sodium 25 mcg 11/23/19 06:00 11/23/19 05:33 Synthroid PO 25 mcg 0600 BLAYNE Administration Lisinopril 20 mg 11/23/19 09:00 11/23/19 07:10 Zestril PO 20 mg DAILY BLAYNE Administration Meclizine HCl 25 mg 11/22/19 19:24 11/23/19 07:10 Antivert PO 25 mg DAILYPRN PRN Administration Dizziness Morphine Sulfate 4 mg 11/22/19 09:55 11/23/19 07:51 Morphine SLOW IVP 4 mg Q4H PRN Administration Chest Pain Pantoprazole Sodium 40 mg 11/23/19 09:00 11/23/19 07:51 Protonix PO 40 mg DAILY BLAYNE Administration Sodium Chloride 10 ml 11/22/19 21:00 11/23/19 01:41 Flush - Normal Saline IVF 10 ml Q12HR BLAYNE Administration - Exam General Appearance: awake alert General - other findings: in moderate distress due to chest pain Neck: no JVD Heart: RRR, no murmur, no gallops, no rubs Respiratory: CTAB, no wheezes, no rales, no ronchi Gastrointestinal: soft, non-tender, non-distended, normal bowel sounds Psychiatric: A&O x 3 Hosp A/P - Plan #STEMI #HTN emergency Active chest pain JABARI AVR > AV1 with reciprocal st depressions -Trop and follow up EKG stat -cardiology informed # Episodic bradycardia. bradycardic 50-60 overnight per cardiology no indication for pacemaker placement at this point # Left lower extremity pitting edema. a. Lower extremity pitting edema on the left greater than the right. b. The patient has a history of pulmonary embolism. c. Also, new onset of bradycardia might be a result of right heart strain. Plan: 1. LE Doppler. DISPOSITION/PROPHYLAXIS: 1. The patient is full code per the patient's request. 2. GI prophylaxis. The patient is taking pantoprazole 20 mg daily. 3. DVT prophylaxis, Lovenox.
[2019-11-23] MEDS: Ondansetron PF 4 MG/2 ML Vial IVP PRN ×2 (08:47→23:40)
[2019-11-23] MEDS ORDERED: Aspirin 81 mg Enteric Coated Tablet PO SCH (09:00)
[2019-11-23] MEDS ORDERED: Enoxaparin Sodium 40 MG/0.4 ML SYRINGE SC SCH (09:00)
[2019-11-23] MEDS ORDERED: Lisinopril 5 MG TAB PO SCH (09:00)
[2019-11-23] MEDS ORDERED: Levothyroxine Sodium 75 MCG TAB PO SCH (09:00)
[2019-11-23] MEDS ORDERED: Metoclopramide HCl 10 MG/2 ML VIAL IVP PRN (09:04)
[2019-11-23 09:15] LABS: Troponin I 0.671 ng/mL (< 0.028)
[2019-11-23] MEDS ORDERED: Iopamidol 370 76% 100 ML VIAL ONE (09:15)
[2019-11-23] MEDS ORDERED: Iopamidol 370 76% 50 ML VIAL FS ONE (09:15)
[2019-11-23] MEDS ORDERED: Heparin 10,000 UNITS/ 10 ML VIAL SLOW IVP SCH (09:45)
[2019-11-23] MEDS ORDERED: Heparin 25,000 units/D5W 500 ML IVPB SCH (09:45)
[2019-11-23] MEDS ORDERED: Nitroglycerin 0.4 MG TAB (25 Tab Bottle) SL PRN (09:47)
[2019-11-23 09:57] VITALS: BMI 32.3
--- NOTE | 2019-11-23 09:58 | PRG ---
DATE OF SERVICE: 11/23/2019 SUBJECTIVE: Soila Beth is a 69-year-old female day, remains nauseated in the ICU with chest pain. She denies any difficulty breathing. OBJECTIVE: VITAL SIGNS: Pulse 99, blood pressure 140/80s, saturations are 90%, respiratory rate 23. CHEST: No wheezing, no crackles. CARDIAC: Normal S1, S2. No gallops. LABORATORY DATA: Lytes are normal. ASSESSMENT: Chest pain, rule out coronary artery disease, nausea, vomiting. PLAN: Pulmonary/Critical Care will follow while in the ICU. Blood pressure is improved, p.r.n. medicine for nausea. We will follow while she is in the ICU. Job ID: [id number]
[2019-11-23 10:11] LABS: Hemoglobin 14.4 g/dL (12.0-16.0); Platelet Count 178 thou/uL (130-400)
--- NOTE | 2019-11-23 10:12 | ULT ---
LEFT LOWER EXTREMITY VENOUS DUPLEX EXAM: INDICATION: Left lower extremity pain and edema. FINDINGS: Deep veins of left lower extremity evaluated with ultrasound and Doppler with color Doppler, spectral analysis, and compression. Deep veins of the left lower extremity demonstrate normal blood flow and compression. No evidence of DVT. IMPRESSION: No evidence of left lower extremity deep vein thrombosis. POS: AH
[2019-11-23] MEDS ORDERED: Ondansetron PF 4 MG/2 ML Vial ONE (10:13)
[2019-11-23] MEDS ORDERED: Midazolam HCl 2 mg/2 ml Vial ONE (10:24)
[2019-11-23] MEDS ORDERED: Fentanyl 100 MCG/2 ML VIAL ONE (10:25)
[2019-11-23] MEDS ORDERED: Heparin 10,000 UNITS/ 10 ML VIAL ONE (10:50)
[2019-11-23] MEDS ORDERED: hydrALAZINE 20 MG/ML VIAL ONE (10:53)
[2019-11-23] MEDS ORDERED: Nitroglycerin 100MG/250ML BOT 250 ML ONE (11:00)
[2019-11-23] MEDS ORDERED: TICAGRELOR 90 MG TABLET ONE (11:11)
[2019-11-23] MEDS ORDERED: Metoprolol Tartrate 25 MG TAB PO SCH ×2 (11:30→21:00)
[2019-11-23] MEDS ORDERED: Clopidogrel Bisulfate 300 MG TAB PO SCH (11:30)
[2019-11-23] MEDS ORDERED: Sodium Chloride 0.9% 500 ML IV SCH (11:45)
[2019-11-23 11:56] LABS: SARS-CoV-2 MS2 Positive; SARS-CoV-2 N Gene Negative; SARS-CoV-2 S Gene Negative; SARS-CoV-2 by NAA Not Detected (NotDetected); SARS-CoV-2 orf1ab Negative
--- NOTE | 2019-11-23 17:51 | EKG ---
Test Reason : ROUTINE Blood Pressure : / mmHG Vent. Rate : 077 BPM Atrial Rate : 077 BPM P-R Int : 218 ms QRS Dur : 090 ms QT Int : 452 ms P-R-T Axes : 088 046 017 degrees QTc Int : 511 ms Sinus rhythm with 1st degree A-V block Prolonged QT Abnormal ECG No previous ECGs available Confirmed by IMELDA GALEAS (2) on 11/23/2019 5:51:00 PM Referred By: VASILE Confirmed By:IMELDA GALEAS
[2019-11-24 04:06] LABS: #Eosinphils 0.1 thou/uL (0.0-0.7); #Lymphocytes 2.5 thou/uL (1.20-3.40); #Monocytes 0.8 thou/uL (0.11-0.59); #Neutrophils 5.9 thou/uL (1.40-6.50); %Basophils 0.2 % (0.0-1.0); %Eosinophils 0.7 % (0.0-10.0); %Lymphocytes 27.2 % (21.0-51.0); %Monocytes 8.9 % (0.0-10.0); %Neutrophils 63.1 % (42.0-75.0); Hemoglobin 13.6 g/dL (12.0-16.0); Mean Corpuscular HGB CONC 32.3 g/dL (32.0-36.0); Mean Corpuscular Hemoglobin 28.4 pg (27.0-31.0); Mean Platelet Volume 10.3 fL (7.4-10.4); Platelet Count 170 thou/uL (130-400); RBC Distribution Width 13.5 % (11.5-14.5); White Blood Cell (WBC) Count 9.3 thou/uL (4.8-10.8)
[2019-11-24 04:33] LABS: ALT (SGPT) 35 U/L (8-55); AST (SGOT) 72 U/L (5-34); Albumin 3.3 g/dL (3.4-4.8); Alkaline Phosphatase 72 U/L (40-110); Anion Gap 13 mmol/L (10-20); BUN (Urea Nitrogen) 18 mg/dL (9.8-20.1); Bilirubin, Total 0.5 mg/dL (0.2-1.2); Calc. Creatinine Clearance 86 mL/min (70-130); Calcium 9.1 mg/dL (7.8-10.44); Carbon Dioxide 20 mmol/L (23-31); Chloride 110 mmol/L (98-107); Estimated GFR-MDRD 78; Globulin 3.4 g/dL (2.4-3.5); Glucose 112 mg/dL (80-115); Potassium 3.2 mmol/L (3.5-5.1); Protein, Total 6.7 g/dL (6.0-8.3); Sodium 140 mmol/L (136-145)
[2019-11-24] MEDS ORDERED: Potassium Chloride 20 MEQ TAB PO SCH (05:00)
[2019-11-24] MEDS: hydrALAZINE 20 MG/ML VIAL SLOW IVP PRN (05:44)
[2019-11-24] MEDS: Levothyroxine Sodium 25 MCG TAB PO SCH (05:45)
[2019-11-24] MEDS: Levothyroxine Sodium 112 MCG TAB PO SCH (05:45)
[2019-11-24] MEDS ORDERED: Chlorthalidone 25 MG TAB PO SCH ×2 (08:00→09:00)
[2019-11-24] MEDS: Aspirin 81 mg Enteric Coated Tablet PO SCH (08:09)
[2019-11-24] MEDS: Lisinopril 20 MG TAB PO SCH (08:09)
[2019-11-24] MEDS: Clopidogrel Bisulfate 75 MG TAB PO SCH (08:10)
[2019-11-24] MEDS: Enoxaparin Sodium 40 MG/0.4 ML SYRINGE SC SCH (08:11)
[2019-11-24] MEDS: Potassium Chloride 20 MEQ TAB PO SCH ×2 (08:12→11:58)
[2019-11-24] MEDS: Chlorthalidone 25 MG TAB PO SCH (08:21)
[2019-11-24] MEDS: Carvedilol 6.25 MG TAB PO SCH ×2 (08:23→17:17)
--- NOTE | 2019-11-24 08:24 | PDOC.HOSPP ---
- Subjective Encounter Date: 11/24/19 Encounter Time: 07:30 Subjective: no overnight events. This morning, feeling well, no shortness of breath or chest pain. Blood pressure grossly elevated, adjusted antihypertensive regimen. - Objective Vital Signs & Weight: Vital Signs (12 hours) Temp Pulse Resp BP 11/24/19 08:09 204/64 H 11/24/19 05:44 67 213/76 H 11/24/19 04:00 98.7 F 70 15 11/24/19 00:00 98.5 F 70 13 11/23/19 22:48 67 213/76 H Weight Admit Weight 165 lb Weight 165 lb 9.074 oz Most Recent Monitor Data Heart Rate from ECG 86 NIBP 191/65 NIBP BP-Mean 107 Respiration from ECG 15 SpO2 96 I&O: 11/23/19 11/24/19 11/25/19 06:59 06:59 06:59 Intake Total 1065 1260 Output Total 1050 1375 100 Balance 15 -115 -100 Result Diagrams: 11/24/19 03:04 11/24/19 03:30 Hospitalist ROS - Review of Systems Constitutional: denies: chills, sweats, weakness Eyes: denies: vision change Respiratory: denies: cough, shortness of breath, pleuritic pain Cardiovascular: denies: chest pain, palpitations, orthopnea, paroxysmal noc. dyspnea Gastrointestinal: denies: nausea, vomiting, abdominal pain Genitourinary: denies: dysuria, frequency, hematuria - Medication Medications: Active Medications Generic Name Dose Route Start Last Admin Trade Name Freq PRN Reason Stop Dose Admin Aspirin 81 mg 11/23/19 09:00 11/24/19 08:09 Ecotrin PO 81 mg DAILY BLAYNE Administration Chlorthalidone 25 mg 11/24/19 09:00 11/24/19 08:21 Hygroton PO Not Given DAILY BLAYNE Clopidogrel Bisulfate 75 mg 11/23/19 09:00 11/24/19 08:10 Plavix PO 75 mg DAILY BLAYNE Administration Enoxaparin Sodium 40 mg 11/24/19 09:00 11/24/19 08:11 Lovenox SC 40 mg 0900 BLAYNE Administration Hydralazine HCl 10 mg 11/22/19 19:21 11/24/19 05:44 Apresoline SLOW IVP 10 mg Q4H PRN Administration BP > 180/110 Isosorbide Mononitrate 120 mg 11/23/19 09:00 11/24/19 08:05 Imdur PO 120 mg DAILY BLAYNE Administration Levothyroxine Sodium 112 mcg 11/23/19 06:00 11/24/19 05:45 Synthroid PO 112 mcg 0600 BLAYNE Administration Levothyroxine Sodium 25 mcg 11/23/19 06:00 11/24/19 05:45 Synthroid PO 25 mcg 0600 BLAYNE Administration Lisinopril 20 mg 11/23/19 09:00 11/24/19 08:09 Zestril PO 20 mg DAILY BLAYNE Administration Meclizine HCl 25 mg 11/22/19 19:24 11/23/19 07:10 Antivert PO 25 mg DAILYPRN PRN Administration Dizziness Morphine Sulfate 4 mg 11/22/19 09:55 11/23/19 23:31 Morphine SLOW IVP 4 mg Q4H PRN Administration Chest Pain Ondansetron HCl 4 mg 11/23/19 08:43 11/23/19 23:40 Zofran IVP 4 mg Q6H PRN Administration Nausea/Vomiting Pantoprazole Sodium 40 mg 11/23/19 09:00 11/24/19 08:10 Protonix PO 40 mg DAILY BLANYE Administration Potassium Chloride 40 meq 11/24/19 10:00 11/24/19 08:12 K-Dur PO 11/24/19 12:00 40 meq 1000 BLAYNE Administration Sodium Chloride 10 ml 11/22/19 21:00 11/24/19 08:12 Flush - Normal Saline IVF 10 ml Q12HR BLAYNE Administration - Exam General Appearance: NAD, awake alert Eye: PERRL, anicteric sclera Neck: no JVD Heart: RRR, no gallops, no rubs, murmur present (most audible left 2nd intercostal, pansystolic) Respiratory: CTAB, no wheezes, no rales, no ronchi Gastrointestinal: soft, non-tender, non-distended, normal bowel sounds Extremities: 1+ LE edema Neurological: cranial nerve grossly intact, no weakness, no focal deficits, no new deficit. negative: facial droop, hemiplegia, speech deficit, vision deficit Musculoskeletal: normal tone, normal strength Psychiatric: normal affect, normal behavior, A&O x 3 Hosp A/P - Plan #STEMI #HTN urgency POD 1 s/p stent x 2 BP grossly elevated -started chlorthalidone, change metoprolol to coreg; continue lisinopril and hydralazine PRN # Episodic bradycardia (resolved) # Left lower extremity pitting edema. a. Lower extremity pitting edema on the left greater than the right. b. The patient has a history of pulmonary embolism. c. Also, new onset of bradycardia might be a result of right heart strain. doppler -ve for DVT; likely related to heart dysfunction due to stemi DISPOSITION/PROPHYLAXIS: 1. The patient is full code per the patient's request. 2. GI prophylaxis. The patient is taking pantoprazole 20 mg daily. 3. DVT prophylaxis, Lovenox. Home health w/ PT transfer to telemetry when blood pressure lowered and stable, possibly early afternoon
[2019-11-24] MEDS ORDERED: Carvedilol 6.25 MG TAB PO SCH (08:30)
--- NOTE | 2019-11-24 09:24 | PRG ---
DATE OF SERVICE: SUBJECTIVE: Soila Beth this morning is awake, alert, and responsive. She is better. OBJECTIVE: VITAL SIGNS: Blood pressure is elevated at 204/64, pulse 80, respiratory rate 18, saturations . CHEST: Decreased breath sounds. No wheezing. CARDIAC: Normal S1, S2. ABDOMEN: No masses. ASSESSMENT: Uncontrolled hypertension, chest pain, coronary artery disease status post cath. Please review Cardiology note. PLAN: Pulmonary melgar, she appears to be relatively stable. She can probably as per Cardiology. Job ID: [id number]
--- NOTE | 2019-11-24 17:16 | PDOC.CPN ---
- Subjective Date: 11/24/19 Time: 17:14 Interval history: She is doing much better. No more chest pain. - Review of Systems General: denies: fever/chills, weight/appetite/sleep changes, night sweats, fatigue Respiratory: denies: cough, congestion, shortness of breath, exercise intolerance Cardiovascular: denies: chest pain, palpitation, edema, paroxysmal nocturnal dyspnea, orthopnea Gastrointestinal: denies: nausea, vomiting, diarrhea, constipation, abd pain, GI bleeding Musculoskeletal: denies: pain, tenderness, stiffness, swelling, arthritis/ arthralgias Neurological: denies: numbness, syncope, seizure, weakness - Objective Allergies/Adverse Reactions: Allergies Allergy/AdvReac Type Severity Reaction Status Date / Time No Known Allergies Allergy Verified 10/17/19 20:33 Visit Medications: Current Medications Aspirin (Ecotrin) 81 mg PO DAILY [facility] Last Admin: 11/24/19 08:09 Dose: 81 mg Carvedilol (Coreg) 6.25 mg PO BID-[facility] Last Admin: 11/24/19 08:23 Dose: 6.25 mg Chlorthalidone (Hygroton) 25 mg PO DAILY [facility] Last Admin: 11/24/19 08:21 Dose: Not Given Clopidogrel Bisulfate (Plavix) 75 mg PO DAILY [facility] Last Admin: 11/24/19 08:10 Dose: 75 mg Enoxaparin Sodium (Lovenox) 40 mg SC 09 [facility] Last Admin: 11/24/19 08:11 Dose: 40 mg Hydralazine HCl (Apresoline) 10 mg SLOW IVP Q4H PRN PRN Reason: BP > 180/110 Last Admin: 11/24/19 05:44 Dose: 10 mg Isosorbide Mononitrate (Imdur) 120 mg PO DAILY [facility] Last Admin: 11/24/19 08:05 Dose: 120 mg Levothyroxine Sodium (Synthroid) 112 mcg PO 0600 [facility] Last Admin: 11/24/19 05:45 Dose: 112 mcg Levothyroxine Sodium (Synthroid) 25 mcg PO 0600 [facility] Last Admin: 11/24/19 05:45 Dose: 25 mcg Lisinopril (Zestril) 20 mg PO DAILY [facility] Last Admin: 11/24/19 08:09 Dose: 20 mg Meclizine HCl (Antivert) 25 mg PO DAILYPRN PRN PRN Reason: Dizziness Last Admin: 11/23/19 07:10 Dose: 25 mg Metoclopramide HCl (Reglan) 10 mg IVP Q6H PRN PRN Reason: Nausea/Vomiting Miscellaneous Medication (Electrolyte Replacement Protocol) 0 each FS ASDIR PRN ; Protocol PRN Reason: ELECTROLYTE REPLACEMENT Morphine Sulfate (Morphine) 4 mg SLOW IVP Q4H PRN PRN Reason: Chest Pain Last Admin: 11/23/19 23:31 Dose: 4 mg Nitroglycerin (Nitrostat) 0.4 mg SL Q5MIN PRN PRN Reason: Chest Pain Ondansetron HCl (Zofran) 4 mg IVP Q6H PRN PRN Reason: Nausea/Vomiting Last Admin: 11/23/19 23:40 Dose: 4 mg Pantoprazole Sodium (Protonix) 40 mg PO DAILY [facility] Last Admin: 11/24/19 08:10 Dose: 40 mg Sodium Chloride (Flush - Normal Saline) 10 ml IVF Q12HR [facility] Last Admin: 11/24/19 08:12 Dose: 10 ml Sodium Chloride (Flush - Normal Saline) 10 ml IVF PRN PRN PRN Reason: Saline Flush Vital Signs & Weight: Vital Signs Temp Pulse Pulse Pulse Pulse Resp BP 11/24/19 15:26 97.6 F 75 20 11/24/19 12:00 97.9 F 11/24/19 09:16 70 85 76 11/24/19 08:24 11/24/19 08:23 204/64 H 11/24/19 08:09 204/64 H 11/24/19 08:00 98.7 F 11/24/19 05:44 67 213/76 H BP BP BP BP Pulse Ox Pulse Ox Pulse Ox 11/24/19 15:26 177/77 H 99 11/24/19 12:00 11/24/19 09:16 155/81 H 92/72 133/60 95 98 11/24/19 08:24 95 11/24/19 08:23 11/24/19 08:09 11/24/19 08:00 98 11/24/19 05:44 Pulse Ox 11/24/19 15:26 11/24/19 12:00 11/24/19 09:16 96 11/24/19 08:24 11/24/19 08:23 11/24/19 08:09 11/24/19 08:00 11/24/19 05:44 Admit Weight 165 lb Weight 165 lb 9.074 oz - Physical Exam General: alert & oriented x3 HEENT: mucus membranes moist Neck: supple neck Cardiac: regular rate and rhythm Lungs: normal breath sounds Neuro: grossly intact Abdomen: active bowel sounds Extremities: no edema Skin: clear Musculoskeletal: no pain - Labs Result Diagrams: 11/24/19 03:04 11/24/19 03:30 Troponin/CKMB Troponin I 0.671 ng/mL (< 0.028) H* 11/23/19 08:17 - Telemetry Sinus rhythms and dysrhythmias: sinus rhythm - Assessment/Plan Assessment/Plan: 1. NSTEMI 2. Hypertensive urgency 3. Hx of CABG 4. S/P PCI to Large OM2 and distal LM into LCx with AUNDREA. PLAN: - JENNIFER for 1 yr minimum. - Continue ASA,statin, BB, ACEI. - She will follow up with Dr. Stacy in 3 weeks. - Will sign off. Please call with any questions.
[2019-11-25 05:01] LABS: Anion Gap 14 mmol/L (10-20); BUN (Urea Nitrogen) 17 mg/dL (9.8-20.1); Calc. Creatinine Clearance 84 mL/min (70-130); Carbon Dioxide 20 mmol/L (23-31); Chloride 108 mmol/L (98-107); Estimated GFR-MDRD 75; Glucose 102 mg/dL (80-115); Magnesium 1.5 mg/dL (1.6-2.6); Potassium 3.6 mmol/L (3.5-5.1); Sodium 138 mmol/L (136-145)
[2019-11-25] MEDS ORDERED: Magnesium 2 GM/50 ML 2 GM in Premix Bag 1 BAG IVPB SCH (05:15)
[2019-11-25] MEDS: Levothyroxine Sodium 25 MCG TAB PO SCH (06:55)
[2019-11-25] MEDS: Levothyroxine Sodium 112 MCG TAB PO SCH (06:56)
[2019-11-25] MEDS: Clopidogrel Bisulfate 75 MG TAB PO SCH (07:59)
[2019-11-25] MEDS: Chlorthalidone 25 MG TAB PO SCH (07:59)
[2019-11-25] MEDS: Enoxaparin Sodium 40 MG/0.4 ML SYRINGE SC SCH (07:59)
[2019-11-25] MEDS: Aspirin 81 mg Enteric Coated Tablet PO SCH (08:00)
[2019-11-25] MEDS: Carvedilol 6.25 MG TAB PO SCH (08:00)
[2019-11-25] MEDS: Lisinopril 20 MG TAB PO SCH (08:00)
[2019-11-25] MEDS ORDERED: Carvedilol 6.25 MG TAB PO SCH ×2 (09:30→17:00)
[2019-11-25 12:14] VITALS: TEMP 97.8
[2019-11-25 13:37] VITALS: BP 138/64
[2019-11-25] MEDS ORDERED: Atorvastatin Calcium 10 MG TAB PO SCH (21:00)
--- NOTE | 2019-11-26 03:43 | DIS ---
DATE OF ADMISSION: 11/22/2019 DATE OF DISCHARGE: 11/25/2019 HOSPITAL COURSE: Ms. Beth is a 69-year-old female with medical history of coronary artery disease status post CABG (five-vessel bypass in 2005), hypertension, who presented with palpitations. She was admitted for hypertensive emergency considering initial lateral ST depression on EKG. Overnight, the patient had developed chest pain and troponin elevated. EKG showed ST elevation in aVR greater than V1 and reciprocal ST depression changes in remaining leads suggestive of left main coronary artery occlusion. Cardiology was consulted stat and the patient underwent PCI with placement of drug-eluting stents in OM2 and distal left main into the left circumflex. The patient tolerated the procedure well and chest pain resolved. She was discharged home hemodynamically stable with no complaints. Of note, the patient's blood pressure remained labile. Antihypertensive medication was distributed temporally, but the patient was requested to follow up with primary care physician as soon as possible in order to address the above hypertension. PHYSICAL EXAMINATION: VITAL SIGNS: Blood pressure 138/58, pulse 67, respiratory rate 15, oxygen saturation 97% on room air, and temperature 97.8. GENERAL APPEARANCE: Obese, lying comfortably in bed. Awake and alert. HEENT: Normocephalic and atraumatic. CARDIAC: Regular rate and rhythm. No murmurs, gallops, or rubs. LUNGS: Clear to auscultation bilaterally. No wheezing, rales or rhonchi. GI: Soft, nontender, and nondistended. Normal bowel sounds. EXTREMITIES: Right femoral access shows minimal superficial hematoma that remained unchanged after the procedure. No edema. PSYCHIATRIC: Proper mood and affect. Alert and oriented x3. MEDICATION LIST: New medications; 1. Coreg 6.25 p.o. b.i.d. 2. Atorvastatin 10 mg p.o. at bedtime per Cardiology due to mildly elevated AST. 3. Chlorthalidone 12.5 mg p.o. daily. 4. Lisinopril 10 mg p.o. at bedtime. 5. Nitroglycerin 0.4 mg sublingual every 5 minutes. Continued medications; 1. Aspirin 81 mg p.o. daily. 2. Plavix 75 mg p.o. daily. 3. Levothyroxine 137 mcg p.o. daily. Job ID: [id number]
== END 2019-11-25 14:57 | disposition home or self-care (01) | DRG 247 ==
LOC: ERS 06:28 → CCU 09:53 → 2NO 11-24 15:39
PROVIDERS: ADMIT Internal Medicine; ATTEND Internal Medicine
PROC: 027135Z Dilation of Coronary Artery, Two Arteries with Two Drug-eluting Intraluminal Devices, Percutaneous Approach (ICD-10-PCS; principal; 2019-11-23)
PROC: 02C13ZZ Extirpation of Matter from Coronary Artery, Two Arteries, Percutaneous Approach (ICD-10-PCS; 2019-11-23)
PROC: 4A023N7 Measurement of Cardiac Sampling and Pressure, Left Heart, Percutaneous Approach (ICD-10-PCS; 2019-11-23)
PROC: B2131ZZ Fluoroscopy of Multiple Coronary Artery Bypass Grafts using Low Osmolar Contrast (ICD-10-PCS; 2019-11-23)
PROC: B2151ZZ Fluoroscopy of Left Heart using Low Osmolar Contrast (ICD-10-PCS; 2019-11-23)
DX: I21.29 ST elevation (STEMI) myocardial infarction involving other sites (principal); I16.1 Hypertensive emergency; Z20.828 Contact with and (suspected) exposure to other viral communicable diseases; I25.10 Atherosclerotic heart disease of native coronary artery without angina pectoris; I10 Essential (primary) hypertension; E03.9 Hypothyroidism, unspecified; E78.5 Hyperlipidemia, unspecified; Z95.1 Presence of aortocoronary bypass graft; Z90.49 Acquired absence of other specified parts of digestive tract; Z90.710 Acquired absence of both cervix and uterus; Z79.82 Long term (current) use of aspirin; Z79.899 Other long term (current) drug therapy; Z86.711 Personal history of pulmonary embolism
CPT/HCPCS: 36415; 36416; 71045; 76942; 80048; 80053; 83690; 83735; 83880; 84443; 84484; 85014; 85018; 85025; 85049; 85347; 85730; 87635; 92928; 92929; 93005; 93010; 93455; 93798; 96365; 96366; 99152; 99153; C1760; C1874; C9600; C9601; J0360; J1644; J1650; J2250; J2270; J2405; J3010; J3475; Q9967; U0003

== ENCOUNTER 2020-05-04 03:21 | Observation (INO) | payer MEDICARE, OTHER ==
[2020-05-04] MEDS ORDERED: cloNIDine 0.1 MG TAB ONE ×2 (03:39→10:09)
[2020-05-04] MEDS ORDERED: Aspirin Chewable 81 MG TAB ONE (03:39)
[2020-05-04] MEDS ORDERED: Nitroglycerin 0.4 MG TAB 1 EACH ONE (03:58)
[2020-05-04 04:08] LABS: #Eosinphils 0.2 thou/uL (0.0-0.7); #Lymphocytes 2.5 thou/uL (1.20-3.40); #Monocytes 0.6 thou/uL (0.11-0.59); #Neutrophils 5.8 thou/uL (1.40-6.50); %Basophils 0.4 % (0.0-1.0); %Eosinophils 1.8 % (0.0-10.0); %Lymphocytes 27.2 % (21.0-51.0); %Monocytes 6.9 % (0.0-10.0); %Neutrophils 63.7 % (42.0-75.0); Hemoglobin 14.2 g/dL (12.0-16.0); Mean Corpuscular HGB CONC 33.4 g/dL (32.0-36.0); Mean Corpuscular Hemoglobin 28.2 pg (27.0-31.0); Mean Corpuscular Volume 84.5 fL (78.0-98.0); Mean Platelet Volume 9.5 fL (7.4-10.4); Platelet Count 177 thou/uL (130-400); RBC Distribution Width 13.7 % (11.5-14.5); Red Blood Cell (RBC) Count 5.04 mill/uL (4.20-5.40)
[2020-05-04 04:15] LABS: Bilirubin Negative (Negative); Blood, Urine 1+ (Negative); Clarity Clear (Clear); Glucose, Urine (Dipstick) Normal (Negative); Ketone, Urine Negative (Negative); Leukocyte Negative Leu/uL (Negative); Nitrite Negative (Negative); Protein, Urine (Dipstick) 100 mg/dL (Neg-Trace); RBC/HPF 0-3 HPF (0-3); Specific Gravity, Urine 1.007 (1.002-1.036); Squamous Epithelial 0-3 HPF (0-3); Urobilinogen Normal mg/dL (Less than 2); pH, Urine 6.5 (5.0-9.0)
[2020-05-04 04:16] LABS: Bacteria/HPF 1+ HPF (None Seen)
[2020-05-04 04:29] LABS: ALT (SGPT) 30 U/L (8-55); AST (SGOT) 30 U/L (5-34); Albumin 3.9 g/dL (3.4-4.8); Alkaline Phosphatase 134 U/L (40-110); Anion Gap 14 mmol/L (10-20); BUN (Urea Nitrogen) 19 mg/dL (9.8-20.1); Bilirubin, Total 0.4 mg/dL (0.2-1.2); Calc. Creatinine Clearance 0 mL/min (70-130); Calcium 9.5 mg/dL (7.8-10.44); Carbon Dioxide 23 mmol/L (23-31); Chloride 107 mmol/L (98-107); Glucose 195 mg/dL (80-115); Potassium 3.4 mmol/L (3.5-5.1); Protein, Total 7.9 g/dL (5.8-8.1); Sodium 141 mmol/L (136-145)
[2020-05-04] MEDS ORDERED: niCARdipine 20MG In NaCl 20 MG/200 ML BAG ONE (04:55)
[2020-05-04] MEDS ORDERED: Sodium Chloride 0.9% 100 ML ONE (06:00)
[2020-05-04] MEDS ORDERED: cefTRIAXone\\ROCEPHIN 1 GM VIAL ONE (06:00)
[2020-05-04] MEDS ORDERED: Lisinopril 10 MG TAB ONE (06:00)
[2020-05-04] MEDS ORDERED: Ondansetron PF 4 MG/2 ML Vial IVP PRN (06:19)
[2020-05-04] MEDS ORDERED: Guaifenesin DM 100-10/5 ML UDCUP PO PRN (06:19)
[2020-05-04] MEDS ORDERED: Promethazine HCl 12.5 MG in Sodium Chloride 0.9% 50 ML IVPB PRN (06:19)
[2020-05-04] MEDS ORDERED: Acetaminophen 325 MG TAB PO PRN (06:19)
[2020-05-04] MEDS ORDERED: HYDROcodone/Acetaminophen 5/325 mg Tablet PO PRN (06:19)
[2020-05-04] MEDS ORDERED: Electrolyte Replacement Protocol 1 EACH FS SCH (06:30)
--- NOTE | 2020-05-04 06:31 | PDOC.HHP ---
Hospitalist HPI Chest pain History of Present Illness: Patient is a 69 year old female with PMH HTN, CAD, CABG who presents to hospital with substernal chest pain radiating to back x 1 day, worse with exertion. Patient found to be hypertensive in ED with SBP to 250s, eKG with some stable ST irregularities from previous, troponin negative. Pateint placed on cardene drip, given clonidine with improvement of BP to SBP 140s. Chest pain resolved. On interview, patient reveals she was taken off clonidine about a week ago, and is on new medications instead. Takes ASA. [place] admitted for observation and weaning of clonidne in controlled setting. Allergies/Adverse Reactions: Allergy/AdvReac Type Severity Reaction Status Date / Time No Known Allergies Allergy Verified 10/17/19 20:33 Home Medications: Medication Instructions Recorded Confirmed Type Clopidogrel Bisulfate [Clopidogrel] 75 mg PO DAILY 09/14/16 11/22/19 History Isosorbide Mononitrate [Isosorbide 120 mg PO DAILY 11/15/17 11/22/19 History Mononitrate ER] Levothyroxine Sodium [Synthroid] 137 mcg PO DAILY 11/15/17 11/22/19 History Meclizine HCl 25 mg PO PRN PRN 10/17/19 11/22/19 History Pantoprazole Sodium 20 mg PO DAILY 10/17/19 11/22/19 History Cetirizine HCl [All Day Allergy] 10 mg PO DAILY 11/22/19 11/22/19 History Aspirin [Adult Low Dose Aspirin EC] 81 mg PO DAILY #60 tablet. 11/25/19 Rx Atorvastatin Calcium [Lipitor] 10 mg PO HS #60 tab 11/25/19 Rx Carvedilol [Coreg] 6.25 mg PO BID-[facility] #60 tab 11/25/19 Rx Chlorthalidone [Hygroton] 12.5 mg PO DAILY #60 tab 11/25/19 Rx Lisinopril 10 mg PO HS #30 tablet 11/25/19 Rx Nitroglycerin [Nitrostat] 0.4 mg SL Q5MIN PRN #5 tab 11/25/19 Rx Metoprolol Succinate [Toprol XL] 25 mg PO DAILY 05/04/20 History Past History: PMHx: HTN, HLD, CAD, hypothyroidism PSHx: lumpectomy, oophorectomy, pacemaker FHx: reviewed, no significant FH Social: denies alcohol/tobacco/drugs Hospitalist HPI ROS Constitutional: denies: fever, chills, sweats, weakness, malaise, other Eyes: denies: pain, vision change, conjunctivae inflammation, eyelid inflammation, redness, other ENT: denies: ear pain, ear discharge, nose pain, nose discharge, nose congestion, mouth pain, mouth swelling, throat pain, throat swelling, other Respiratory: denies: cough, dry, shortness of breath, hemoptysis, SOB with excertion, pleuritic pain, sputum, wheezing, other Cardiovascular: reports: chest pain. denies: palpitations, orthopnea, paroxysmal noc. dyspnea, edema, light headedness, other Gastrointestinal: denies: nausea, vomiting, abdominal pain, diarrhea, constipation, melena, hematochezia, other Genitourinary: denies: dysuria, frequency, incontinence, hematuria, retention, other Musculoskeletal: denies: neck pain, shoulder pain, arm pain, back pain, hand pain, leg pain, foot pain, other Skin: denies: rash, lesions, erasmo, bruising, other Neurological: denies: weakness, numbness, incoordination, change in speech, confusion, seizures, other All other systems reviewed; all pertinent +/- noted in HPI/Subj Hospitalist Exam Vitals: VITAL SIGNS SatMay 04, 2020 05:00 SHERIE [place] Jessica BP: 224/98 MAP: 140 Pulse: 60 Resp: 16 O2 sat: 99 on (Room Air) Time: 05/04/2020 05:00. General Appearance: NAD, awake alert Eye: PERRL, anicteric sclera ENT: normocephalic atraumatic, no oropharyngeal lesions, moist mucosa Neck: supple, symmetric, no JVD, no thyromegaly, no lymphadenopathy, no carotid bruit Heart: RRR, no murmur, no gallops, no rubs, normal peripheral pulses Respiratory: CTAB, no wheezes, no rales, no ronchi, normal chest expansion, no tachypnea, normal percussion Gastrointestinal: soft, non-tender, non-distended, normal bowel sounds, no palpable masses, no hepatomegaly, no splenomegaly, no bruit Extremities: no cyanosis, no clubbing, no edema Skin: normal turgor, no lesions, no rashes Neurological: cranial nerve grossly intact, normal sensation to touch, no weakness, no focal deficits, no new deficit Musculoskeletal: normal tone, normal strength, no muscle wasting Psychiatric: normal affect, normal behavior, A&O x 3 Hospitalist Results Result Diagrams: 05/04/20 03:54 05/04/20 03:54 Lab results: Laboratory Last Values WBC 9.0 thou/uL (4.8-10.8) 05/04/20 03:54 RBC 5.04 mill/uL (4.20-5.40) 05/04/20 03:54 Hgb 14.2 g/dL (12.0-16.0) 05/04/20 03:54 Hct 42.6 % (36.0-47.0) 05/04/20 03:54 MCV 84.5 fL (78.0-98.0) 05/04/20 03:54 MCH 28.2 pg (27.0-31.0) 05/04/20 03:54 MCHC 33.4 g/dL (32.0-36.0) 05/04/20 03:54 RDW 13.7 % (11.5-14.5) 05/04/20 03:54 Plt Count 177 thou/uL (130-400) 05/04/20 03:54 MPV 9.5 fL (7.4-10.4) 05/04/20 03:54 Neutrophils % 63.7 % (42.0-75.0) 05/04/20 03:54 Lymphocytes % 27.2 % (21.0-51.0) 05/04/20 03:54 Monocytes % 6.9 % (0.0-10.0) 05/04/20 03:54 Eosinophils % 1.8 % (0.0-10.0) 05/04/20 03:54 Basophils % 0.4 % (0.0-1.0) 05/04/20 03:54 Neutrophils # 5.8 thou/uL (1.40-6.50) 05/04/20 03:54 Lymphocytes # 2.5 thou/uL (1.20-3.40) 05/04/20 03:54 Monocytes # 0.6 thou/uL (0.11-0.59) H 05/04/20 03:54 Eosinophils # 0.2 thou/uL (0.0-0.7) 05/04/20 03:54 Basophils # 0.0 thou/uL (0.0-0.2) 05/04/20 03:54 Sodium 141 mmol/L (136-145) 05/04/20 03:54 Potassium 3.4 mmol/L (3.5-5.1) L 05/04/20 03:54 Chloride 107 mmol/L (98-107) 05/04/20 03:54 Carbon Dioxide 23 mmol/L (23-31) 05/04/20 03:54 Anion Gap 14 mmol/L (10-20) 05/04/20 03:54 BUN 19 mg/dL (9.8-20.1) 05/04/20 03:54 Creatinine 0.91 mg/dL (0.6-1.1) 05/04/20 03:54 Estimated GFR (MDRD) 61 05/04/20 03:54 Glucose 195 mg/dL (80-115) H 05/04/20 03:54 Calcium 9.5 mg/dL (7.8-10.44) 05/04/20 03:54 Total Bilirubin 0.4 mg/dL (0.2-1.2) 05/04/20 03:54 AST 30 U/L (5-34) 05/04/20 03:54 ALT 30 U/L (8-55) 05/04/20 03:54 Alkaline Phosphatase 134 U/L (40-110) H 05/04/20 03:54 Troponin I 0.013 ng/mL (< 0.028) 05/04/20 03:54 B-Natriuretic Peptide 360.5 pg/mL (0-100) H 05/04/20 03:54 Serum Total Protein 7.9 g/dL (5.8-8.1) 05/04/20 03:54 Albumin 3.9 g/dL (3.4-4.8) 05/04/20 03:54 Globulin 4.0 g/dL (2.4-3.5) H 05/04/20 03:54 Albumin/Globulin Ratio 1.0 g/dL (1.2-2.2) L 05/04/20 03:54 Urine Color Colorless (Yellow) 05/04/20 03:35 Urine Clarity Clear (Clear) 05/04/20 03:35 Urine pH 6.5 (5.0-9.0) 05/04/20 03:35 Ur Specific [place] 1.007 (1.002-1.036) 05/04/20 03:35 Urine Protein 100 mg/dL (Neg-Trace) A 05/04/20 03:35 Urine Glucose (UA) Normal mg/dL (Negative) 05/04/20 03:35 Urine Ketones Negative mg/dL (Negative) 05/04/20 03:35 Urine Blood 1+ (Negative) A 05/04/20 03:35 Urine Nitrite Negative (Negative) 05/04/20 03:35 Urine Bilirubin Negative (Negative) 05/04/20 03:35 Urine Urobilinogen Normal mg/dL (Less than 2) 05/04/20 03:35 Ur Leukocyte Esterase Negative Devorah/uL (Negative) 05/04/20 03:35 Urine RBC 0-3 HPF (0-3) 05/04/20 03:35 Urine WBC 4-6 HPF (0-3) A 05/04/20 03:35 Ur Squamous Epith Cells 0-3 HPF (0-3) 05/04/20 03:35 Urine Bacteria 1+ HPF (None Seen) A 05/04/20 03:35 Additional comment: EKG, labs, imaging reports reviewed NSR 66 bpm, no acute ST changes early repolarization, IA 258 Hospitalist H&P A/P Plan: Patient is a 69 year old female with PMH HTN, CAD, CABG who presents to hospital with substernal chest pain radiating to back x 1 day, worse with exertion. # chest pain # HTN emergenct - resolved likely rebound HTN due top stopping clonidine, resolved with clonidine in ED, p atient to be admitted for observation and weaning of clonidne in controlled setting. - admit to telemetry - resume home medications once med rec complete - PRN clonidine ordered to wean as needed to maintain SBP < 160 as able # CAD, h/o CABD - continue trending enzymes and r/o ACS, suspect this is all clonidine related though. has a home radar tester if consultation needed - resume home ASA and other meds once med rec complete # hypoothyroidism - resume synthroid # UTI - positive UA, continue ceftraixone, follow cultures # 1st degree AVB - not likely cause of symptoms, may be medications side effect (beta johny on med list), monitor for now DVT/GI ppx
[2020-05-04] MEDS ORDERED: Magnesium 2 GM/50 ML 2 GM in Premix Bag 1 BAG IVPB SCH (07:15)
[2020-05-04 07:28] LABS: Troponin I 0.013 ng/mL (< 0.028)
[2020-05-04] MEDS ORDERED: Potassium Chloride 20 MEQ TAB PO SCH (07:30)
--- NOTE | 2020-05-04 07:40 | RAD ---
ONE VIEW CHEST: COMPARISON: 11/22/2019. HISTORY: Chest pain. FINDINGS: There are sternotomy wires. There is a left-sided transvenous pacemaker with lead position in the ri ght atrium and right ventricle. There is atherosclerosis of the aorta. There is cardiomegaly. Costophrenic angles are clear. Chronic changes of the lung parenchyma without consolidation or mass. No pneumothorax or acute osseous abnormalities. IMPRESSION: 1. No acute cardiopulmonary process. 2. Atherosclerosis. POS: PPP
[2020-05-04] MEDS ORDERED: Magnesium 2 GM/50 ML BAG (IN WATER) ONE (09:19)
[2020-05-04] MEDS ORDERED: Potassium Chloride 20 MEQ TAB ONE (09:19)
[2020-05-04] MEDS: Heparin 5,000 UNITS/ML VIAL SC SCH ×2 (09:25→20:53)
[2020-05-04] MEDS: cloNIDine 0.1 MG TAB PO PRN ×2 (10:05→17:44)
[2020-05-04 10:14] LABS: SARS-CoV-2 PCR by NAA Not Detected (NotDetected)
[2020-05-04 10:17] LABS: Troponin I 0.018 ng/mL (< 0.028)
[2020-05-04 11:33] VITALS: BMI 33.1
[2020-05-04] MEDS ORDERED: Meclizine HCl 25 MG TAB PO PRN (18:07)
[2020-05-04] MEDS ORDERED: Lisinopril 10 MG TAB PO SCH (21:00)
[2020-05-04] MEDS ORDERED: Atorvastatin Calcium 10 MG TAB PO SCH (21:00)
[2020-05-05] MEDS ORDERED: hydrALAZINE 20 MG/ML VIAL SLOW IVP SCH (00:30)
[2020-05-05 04:48] VITALS: TEMP 98.2
[2020-05-05] MEDS: cloNIDine 0.1 MG TAB PO PRN (04:49)
[2020-05-05] MEDS ORDERED: Levothyroxine Sodium 112 MCG TAB PO SCH (06:00)
[2020-05-05] MEDS ORDERED: cefTRIAXone\\ROCEPHIN 1 GM in Sodium Chloride 0.9% 100 ML IVPB SCH (06:00)
[2020-05-05] MEDS ORDERED: Levothyroxine Sodium 25 MCG TAB PO SCH (06:00)
[2020-05-05 06:05] VITALS: BP 162/70
[2020-05-05] MEDS ORDERED: Aspirin 81 mg Enteric Coated Tablet PO SCH (09:00)
[2020-05-05] MEDS ORDERED: Chlorthalidone 25 MG TAB PO SCH (09:00)
[2020-05-05] MEDS ORDERED: Clopidogrel Bisulfate 75 MG TAB PO SCH (09:00)
[2020-05-05] MEDS ORDERED: Loratadine 10 MG TAB PO SCH (09:00)
[2020-05-05] MEDS ORDERED: Levothyroxine Sodium 75 MCG TAB PO SCH (09:00)
--- NOTE | 2020-05-05 10:09 | PDOC.DS.DS ---
Provider Date of Admission: 05/04/20 05:49 Date of Discharge: 05/05/20 Admitting Provider: Quinn Waters MD Primary Care Physician: Christian Ha MD Course Hospital Course: Discharge diagnosis: 1. Hypertensive urgency 2. Hypokalemia 3. Elevated alkaline phosphatase level 4. COVID-19 test negative Hospital course: Patient is a pleasant 69-year-old lady who was admitted to the hospital on F ebruary 2020 for hypertensive urgency and chest pain. This was after she stopped metoprolol succinate when she ran out of her medication. She received antihypertensives with improvement in her blood pressure. Her chest pain resolved. Troponins were negative. She has been advised to follow-up with her egg crater. She had an elevated alkaline phosphatase level during this hospitalization. She has been advised to follow-up with her primary care provider for management of the same. Many thanks for allowing me to participate in your patient's care. Please feel free to contact me with any questions or concerns. Discharge destination: Home. Resuscitation Status: 05/04/20 06:20 Resuscitation Status Routine Resuscitation Status: FULL: Full Resuscitation Lab Results: 05/04/20 03:54 05/04/20 03:54 Abnormal Lab Results - Last 48 hrs 05/04/20 03:35: Urine Protein 100 A, Urine Blood 1+ A, Urine WBC 4-6 A, Urine Bacteria 1+ A 05/04/20 03:54: Monocytes # 0.6 H 05/04/20 03:54: Potassium 3.4 L, Alkaline Phosphatase 134 H, Globulin 4.0 H, Albumin/Globulin Ratio 1.0 L 05/04/20 03:54: B-Natriuretic Peptide 360.5 H Vitals: Vital Signs (12 hours) Temp Pulse Resp BP BP Pulse Ox 05/05/20 06:03 162/70 H 05/05/20 04:49 187/79 H 05/05/20 03:35 98.2 F 60 14 198/87 H 99 05/05/20 01:07 62 207/89 H 05/04/20 23:47 98 F 60 14 197/92 H 97 Weight Weight 164 lb Physical Exam: The patient was seen and examined on the day of discharge. Patient denies chest pain or shortness of breath. Vital signs are stable. S1 and S2 are heard. Lungs are clear to auscultation bilaterally. Plan Prescriptions: Metoprolol Succinate [Toprol XL] 25 mg PO DAILY #30 tab Home Medications: Medication Instructions Recorded Confirmed Type Clopidogrel Bisulfate [Clopidogrel] 75 mg PO DAILY 09/14/16 05/04/20 History Isosorbide Mononitrate [Isosorbide 120 mg PO DAILY 11/15/17 05/04/20 History Mononitrate ER] Levothyroxine Sodium [Synthroid] 137 mcg PO DAILY 11/15/17 05/04/20 History Meclizine HCl 25 mg PO PRN PRN 10/17/19 05/04/20 History Pantoprazole Sodium 20 mg PO DAILY 10/17/19 05/04/20 History Cetirizine HCl [All Day Allergy] 10 mg PO DAILY 11/22/19 05/04/20 History Aspirin [Adult Low Dose Aspirin EC] 81 mg PO DAILY #60 tablet. 11/25/19 05/04/20 Rx Atorvastatin Calcium [Lipitor] 10 mg PO HS #60 tab 11/25/19 05/04/20 Rx Chlorthalidone [Hygroton] 12.5 mg PO DAILY #60 tab 11/25/19 05/04/20 Rx Lisinopril 10 mg PO HS #30 tablet 11/25/19 05/04/20 Rx Nitroglycerin [Nitrostat] 0.4 mg SL Q5MIN PRN #5 tab 11/25/19 05/04/20 Rx Metoprolol Succinate [Toprol XL] 25 mg PO DAILY #30 tab 05/05/20 Rx Allergies: No Known Allergies Allergy (Verified 05/04/20 11:29) per pt Discharge Instructions:: Check your blood pressure and heart rate 3 times a day and shows readings to your primary care provider. Referrals: Pedro Stacy MD [MD Not on Staff] - 7 Days Christian Ha MD [Primary Care Provider] - 3 Days Disposition: HOME Quality CORE MEASURES:: N/A
[2020-05-05] MEDS: Heparin 5,000 UNITS/ML VIAL SC SCH (10:12)
--- NOTE | 2020-05-14 15:16 | EKG ---
Test Reason : Blood Pressure : / mmHG Vent. Rate : 066 BPM Atrial Rate : 066 BPM P-R Int : 258 ms QRS Dur : 096 ms QT Int : 424 ms P-R-T Axes : 081 061 116 degrees QTc Int : 444 ms Sinus rhythm with 1st degree A-V block Marked ST abnormality, possible lateral subendocardial injury Abnormal ECG Confirmed by NEYDA VIDAL M.D. ([id number]), assignment editor JOE NIETO ([id number] on 05/14/2020 3:15:55 PM Referred By: Confirmed By:NEYDA VIDAL M.D.
== END 2020-05-05 10:47 | disposition home or self-care (01) ==
LOC: ERS 03:21 → ERHOLD 05:49 → INTOOBSV 05:49 → 3SE 10:56
PROVIDERS: ADMIT Internal Medicine; ATTEND Internal Medicine
DX: I16.0 Hypertensive urgency (principal); R07.2 Precordial pain; E87.6 Hypokalemia; I10 Essential (primary) hypertension; I25.10 Atherosclerotic heart disease of native coronary artery without angina pectoris; E03.9 Hypothyroidism, unspecified; N39.0 Urinary tract infection, site not specified; I44.0 Atrioventricular block, first degree; E78.5 Hyperlipidemia, unspecified; I70.0 Atherosclerosis of aorta; Z79.02 Long term (current) use of antithrombotics/antiplatelets; Z79.82 Long term (current) use of aspirin; Z79.899 Other long term (current) drug therapy; Z95.0 Presence of cardiac pacemaker; Z95.1 Presence of aortocoronary bypass graft; Z20.822 Contact with and (suspected) exposure to COVID-19; R30.0 Dysuria
CPT/HCPCS: 71045; 80053; 81001; 83880; 84484 ×2; 85025; 87077; 87086; 87186; 93005; 96365; 96367; 96372; 96375 ×2; 96376; 99285; G0378 ×2; U0003; U0005; 36415; 81003; 81015; 87635; J0360; J0696; J1644; J3475; J3490

== ENCOUNTER 2021-01-09 09:16 | Outpatient (CLI) | payer MEDICARE ==
[2021-01-10 00:58] LABS: SARS-CoV-2 PCR by NAA Not Detected (NotDetected)
== END 2021-01-09 09:17 | disposition home or self-care (01) ==
LOC: LABBT 09:16
PROVIDERS: ATTEND Internal Medicine
DX: Z01.812 Encounter for preprocedural laboratory examination (principal); Z20.822 Contact with and (suspected) exposure to COVID-19
CPT/HCPCS: U0003; U0005

== ENCOUNTER 2021-01-12 06:46 | Day surgery (SDC) | payer MEDICARE ==
[2021-01-11 12:46] VITALS: BMI 35.1
[2021-01-12] MEDS ORDERED: PROPOFOL 200 MG/20 ML VIAL ONE (08:56)
[2021-01-12] MEDS ORDERED: Lidocaine 1% PF 5 ML VIAL ONE (08:56)
[2021-01-12] MEDS ORDERED: hydrALAZINE 20 MG/ML VIAL ONE (10:10)
== END 2021-01-12 12:20 | disposition home or self-care (01) ==
LOC: SDC 06:46
PROVIDERS: ATTEND Internal Medicine
PROC: 0DJ08ZZ Inspection of Upper Intestinal Tract, Via Natural or Artificial Opening Endoscopic (ICD-10-PCS; principal; 2021-01-12)
DX: K44.9 Diaphragmatic hernia without obstruction or gangrene (principal); K22.2 Esophageal obstruction; R10.13 Epigastric pain; R19.4 Change in bowel habit; K76.0 Fatty (change of) liver, not elsewhere classified; I11.0 Hypertensive heart disease with heart failure; I50.9 Heart failure, unspecified; I25.10 Atherosclerotic heart disease of native coronary artery without angina pectoris; K21.9 Gastro-esophageal reflux disease without esophagitis; E66.9 Obesity, unspecified; Z68.35 Body mass index [BMI] 35.0-35.9, adult; Z79.02 Long term (current) use of antithrombotics/antiplatelets; Z79.82 Long term (current) use of aspirin; Z79.899 Other long term (current) drug therapy; Z95.1 Presence of aortocoronary bypass graft; Z95.5 Presence of coronary angioplasty implant and graft; Z95.810 Presence of automatic (implantable) cardiac defibrillator
CPT/HCPCS: J0360; J2704

== ENCOUNTER 2021-12-21 13:01 | Outpatient (CLI) | payer OTHER | END 2021-12-21 13:02 | disposition home or self-care (01) | LOC: BICMAMMO 13:01 | PROVIDERS: ATTEND Family Medicine | DX: Z13.820 Encounter for screening for osteoporosis (principal); N63.20 Unspecified lump in the left breast, unspecified quadrant; Z78.0 Asymptomatic menopausal state; M81.0 Age-related osteoporosis without current pathological fracture; M85.851 Other specified disorders of bone density and structure, right thigh; M85.852 Other specified disorders of bone density and structure, left thigh | CPT/HCPCS: 77066; 77080; G0279 ==

== ENCOUNTER 2022-05-08 13:16 | Outpatient (CLI) | payer OTHER | END 2022-05-08 13:17 | disposition home or self-care (01) | LOC: BICMAMMO 13:16 | PROVIDERS: ATTEND Family Medicine | DX: N63.20 Unspecified lump in the left breast, unspecified quadrant (principal); R92.8 Other abnormal and inconclusive findings on diagnostic imaging of breast; N64.4 Mastodynia; Z91.89 Other specified personal risk factors, not elsewhere classified; Z80.3 Family history of malignant neoplasm of breast | CPT/HCPCS: 77065; G0279 ==

== ENCOUNTER 2022-10-17 18:00 | Outpatient (CLI) | payer OTHER | END 2022-10-17 18:01 | disposition home or self-care (01) | LOC: SLEEPLAB 18:00 | PROVIDERS: ATTEND Family Medicine | DX: G47.33 Obstructive sleep apnea (adult) (pediatric) (principal); R06.83 Snoring; E66.9 Obesity, unspecified; I25.10 Atherosclerotic heart disease of native coronary artery without angina pectoris; Z68.35 Body mass index [BMI] 35.0-35.9, adult | CPT/HCPCS: 95800 ==

== ENCOUNTER 2022-11-08 09:09 | Outpatient (CLI) | payer OTHER | END 2022-11-08 09:10 | disposition home or self-care (01) | LOC: ULT 09:09 | PROVIDERS: ATTEND Family Medicine | DX: I71.40 Abdominal aortic aneurysm, without rupture, unspecified (principal); K83.8 Other specified diseases of biliary tract; Z90.49 Acquired absence of other specified parts of digestive tract | CPT/HCPCS: 76700 ==

== ENCOUNTER 2023-01-10 05:52 | Day surgery (SDC) | payer OTHER ==
[2023-01-09 13:57] VITALS: BMI 35.9
[2023-01-10] MEDS ORDERED: PROPOFOL 200 MG/20 ML VIAL ONE (07:57)
[2023-01-10] MEDS ORDERED: Lidocaine 1% PF 5 ML VIAL ONE (07:57)
== END 2023-01-10 09:15 | disposition home or self-care (01) ==
LOC: SDC 05:52
PROVIDERS: ATTEND Internal Medicine
PROC: 0DJD8ZZ Inspection of Lower Intestinal Tract, Via Natural or Artificial Opening Endoscopic (ICD-10-PCS; principal; 2023-01-10)
DX: K63.5 Polyp of colon (principal); K57.30 Diverticulosis of large intestine without perforation or abscess without bleeding; K64.8 Other hemorrhoids; I11.0 Hypertensive heart disease with heart failure; I50.9 Heart failure, unspecified; I25.10 Atherosclerotic heart disease of native coronary artery without angina pectoris; R74.01 Elevation of levels of liver transaminase levels; K21.9 Gastro-esophageal reflux disease without esophagitis; Z79.82 Long term (current) use of aspirin; Z79.899 Other long term (current) drug therapy; Z79.02 Long term (current) use of antithrombotics/antiplatelets
CPT/HCPCS: J2704

== ENCOUNTER 2023-09-09 00:32 | Emergency (ER) | payer OTHER ==
[2023-09-09 02:12] LABS: #Basophils 0.03 10x3/uL (0.0-0.2); %Basophils 0.4 % (0.0-1.0); %Lymphocytes 36.5 % (21.0-51.0); %Monocytes 9.4 % (0.0-10.0); %Neutrophils 50.4 % (42.0-75.0); Hematocrit 39.8 % (36.0-47.0); Hemoglobin 13.1 g/dL (12.0-16.0); Mean Corpuscular HGB CONC 32.9 g/dL (32.0-36.0); Mean Corpuscular Hemoglobin 28.5 pg (27.0-31.0); Mean Corpuscular Volume 86.5 fL (78.0-98.0); Mean Platelet Volume 11.1 fL (7.4-10.4); Platelet Count 192 10x3/uL (130-400); RBC Distribution Width 15.1 % (11.5-14.5)
[2023-09-09 02:27] LABS: INR-International Normal Ratio 1.3; Prothrombin Time 16.2 sec (12.0-14.7)
[2023-09-09 02:28] LABS: PTT 34.2 sec (22.9-36.1)
[2023-09-09 02:48] LABS: ALT (SGPT) 36 U/L (8-55); AST (SGOT) 35 U/L (5-34); Albumin 3.4 g/dL (3.4-4.8); Alkaline Phosphatase 147 U/L (40-110); Anion Gap 14 mmol/L (10-20); BUN (Urea Nitrogen) 23 mg/dL (9.8-20.1); Bilirubin, Total 0.4 mg/dL (0.2-1.2); Calc. Creatinine Clearance 0 mL/min (70-130); Calcium 9.3 mg/dL (7.8-10.44); Carbon Dioxide 22 mmol/L (23-31); Chloride 111 mmol/L (98-107); Estimated GFR 59; Globulin 3.7 g/dL (2.4-3.5); Glucose 138 mg/dL (83-110); Lipase 23 U/L (8-78); Magnesium 1.9 mg/dL (1.6-2.6); Potassium 3.4 mmol/L (3.5-5.1); Protein, Total 7.1 g/dL (5.8-8.1); Sodium 144 mmol/L (136-145)
[2023-09-09 02:49] LABS: Troponin I Less than 0.010 ng/mL (< 0.028)
[2023-09-09 08:58] LABS: Troponin I Less than 0.010 ng/mL (< 0.028)
== END 2023-09-09 05:50 | disposition home or self-care (01) ==
LOC: ERS 00:32
DX: R07.2 Precordial pain (principal); I10 Essential (primary) hypertension; Z79.82 Long term (current) use of aspirin; Z79.899 Other long term (current) drug therapy
CPT/HCPCS: 36415; 71045; 80053; 83690; 83735; 83880; 84484; 85025; 85610; 85730; 93005

== ENCOUNTER 2024-11-03 11:19 | Outpatient (CLI) | payer OTHER | END 2024-11-03 11:20 | disposition home or self-care (01) | LOC: BICMAMMO 11:19 | DX: Z12.31 Encounter for screening mammogram for malignant neoplasm of breast (principal); Z80.3 Family history of malignant neoplasm of breast; Z91.89 Other specified personal risk factors, not elsewhere classified | CPT/HCPCS: 77063; 77067 ==

== ENCOUNTER 2025-01-27 12:35 | Outpatient (CLI) | payer OTHER | END 2025-01-27 12:36 | disposition home or self-care (01) | LOC: BICMAMMO 12:35 | DX: Z78.0 Asymptomatic menopausal state (principal); M85.89 Other specified disorders of bone density and structure, multiple sites | CPT/HCPCS: 77080 ==

== ENCOUNTER 2025-03-13 21:09 | Emergency (ER) | payer OTHER ==
[2025-03-13 22:13] LABS: #Basophils 0.03 10x3/uL (0.0-0.2); #Eosinophils Less than 0.03 10x3/uL (0.0-0.7); #Monocytes 0.60 10x3/uL (0.11-0.59); #Neutrophils 3.38 10x3/uL (1.40-6.50); %Basophils 0.5 % (0.0-1.0); %Eosinophils 0.4 % (0.0-10.0); %Lymphocytes 26.1 % (21.0-51.0); %Monocytes 11.0 % (0.0-10.0); %Neutrophils 61.8 % (42.0-75.0); Hematocrit 40.8 % (36.0-47.0); Hemoglobin 13.5 g/dL (12.0-16.0); Mean Corpuscular Hemoglobin 27.7 pg (27.0-31.0); Mean Corpuscular Volume 83.8 fL (78.0-98.0); Platelet Count 139 10x3/uL (130-400); Red Blood Cell (RBC) Count 4.87 mill/uL (4.20-5.40); White Blood Cell (WBC) Count 5.47 10x3/uL (4.8-10.8)
[2025-03-13 22:58] LABS: ALT (SGPT) 55 U/L (Less than 34); AST (SGOT) 60 U/L (11-34); Albumin 3.4 g/dL (3.1-4.5); Alkaline Phosphatase 92 U/L (40-110); Anion Gap 15 mmol/L (10-20); BUN (Urea Nitrogen) 21 mg/dL (9.8-20.1); Bilirubin, Total 0.5 mg/dL (0.3-1.2); Calc. Creatinine Clearance 0 mL/min (70-130); Calcium 9.1 mg/dL (7.8-10.44); Carbon Dioxide 18 mmol/L (23-31); Chloride 107 mmol/L (98-107); Globulin 3.7 g/dL (2.4-3.5); Glucose 146 mg/dL (83-110); Potassium 3.3 mmol/L (3.5-5.1); Sodium 137 mmol/L (136-145)
== END 2025-03-13 23:40 | disposition home or self-care (01) ==
LOC: ERS 21:09
DX: J10.1 Influenza due to other identified influenza virus with other respiratory manifestations (principal); I10 Essential (primary) hypertension; Z86.73 Personal history of transient ischemic attack (TIA), and cerebral infarction without residual deficits
CPT/HCPCS: 71045; 80053; 83880; 84484; 85025; 87428; 93005; 94760